=== PATIENT | female | born 1965 | race Caucasian/White ===

== ENCOUNTER 2019-10-23 14:50 | Outpatient (CLI) | payer BC, SELFPAY ==
--- NOTE | ~2019-10-23 | XR_ITS ---
XR lumbar spine 2-3V DATE: 10/23/2019 15:37 INDICATION: Low back pain. Injury from high school. TECHNIQUE: AP, lateral, coned lateral lumbosacral views COMPARISON: None FINDINGS: Minimal levoscoliosis of the lumbar spine. Osteopenia. Probable bilateral L5 pars interarticularis defects with grade 1 anterolisthesis at L5-S1. Moderately severe loss of interspace height at L5-S1. Mild degenerative disease at L1-2. Otherwise no fracture or bone destruction is noted. The included T11-L5 pedicles are intact. The sacroiliac joints are normal. Bilateral fallopian tube implant devices are noted. Status post cholecystectomy. IMPRESSION: Osteopenia Minimal levoscoliosis Probable bilateral L5 pars intra-articular is defects with associated grade 1 anterolisthesis at L5-S 1 Degenerative disc disease at L1-2 and L5-S1 primarily Reviewed, dictated and finalized at location A. IMPRESSION: Osteopenia Minimal levoscoliosis Probable bilateral L5 pars intra-articular is defects with associated grade 1 a nterolisthesis at L5-S1 Degenerative disc disease at L1-2 and L5-S1 primarily
--- NOTE | ~2019-10-23 | XR_ITS ---
XR foot LT min 3V DATE: 10/23/2019 15:35 INDICATION: Left heel pain TECHNIQUE: 4 views COMPARISON: 09/17/2018 left foot FINDINGS: There is prominent plantar calcaneal enthesopathy without erosive change or periostitis. No fracture, dislocation, periosteal reaction or bone destruction. There is osteoarthritic change at the first metatarsophalangeal joint. IMPRESSION: Plantar calcaneal enthesopathy Osteoarthritis at first metatarsophalangeal joint Reviewed, dictated and finalized at location A.
[2019-10-23 15:15] LABS: Hematocrit 36.7 % (37.0-47.0); Hemoglobin 11.4 g/dL (12.0-15.0); Mean Corpuscular HGB Conc 31.1 g/dl (32-36); Mean Corpuscular Hemoglobin 27.9 pg (26-34); Mean Corpuscular Volume 89.7 fl (80-100); Mean Platelet Volume 9.9 fl (7.4-10.4); Platelet Count Result 260 k/mm3 (150-375); Red Blood Count 4.09 M/mm3 (4.2-5.4); Red Cell Distribution Width 14.2 % (11.5-14.5); White Blood Count 7.5 K/mm3 (4.5-10.0)
[2019-10-23 15:17] LABS: Add Urine Microscopic? NO; Appearance Urine Clear (Clear); Bilirubin Urine Negative (Negative); Blood Urine Negative (Negative); Color Urine Yellow (Yellow); Glucose Urine UA Negative (Negative); Ketones Urine Negative (Negative); Leukocyte Esterase Ur Negative LEU/UL (NEGATIVE); Nitrate Urine Negative (Negative); Protein Urine Negative (Negative); Specific Grav Ur 1.017 (1.001-1.035); Urobilinogen Urine Negative mg/dL (<2.0)
[2019-10-23 15:55] LABS: Alanine Aminotransferase 22 U/L (4-35); Albumin Level 4.2 g/dL (3.5-5.1); Alkaline Phosphatase 90 U/L (38-126); Anion Gap 6 mmol/L (8-16); Aspartate Amino Transferase 23 U/L (14-36); Bilirubin,Total 0.3 mg/dL (0.2-1.3); Blood Urea Nitrogen 25 mg/dL (7-17); Calcium 9.2 mg/dL (8.4-10.2); Carbon Dioxide 31 mmol/L (22-30); Chloride 102 mmol/L (98-107); Cholesterol 149 mg/dL (0-200); Estimated Glomerular Filt Rate > 60; Glucose 99 mg/dL (65-105); HDL Direct 41 mg/dL; Potassium 4.3 mmol/L (3.4-5.0); Sodium 139 mmol/L (137-145); Triglycerides 120 mg/dL (<150)
[2019-10-23 16:06] LABS: LDL Cholesterol Direct 80 mg/dL
== END 2019-10-23 14:51 | disposition home or self-care (01) ==
PROVIDERS: PCP Family Medicine; Visit Provider Physician Assistant
DX: E78.5 Hyperlipidemia, unspecified (principal); I10 Essential (primary) hypertension; M85.88 Other specified disorders of bone density and structure, other site; M51.36 Other intervertebral disc degeneration, lumbar region; M51.37 Other intervertebral disc degeneration, lumbosacral region; M77.32 Calcaneal spur, left foot; M19.072 Primary osteoarthritis, left ankle and foot
CPT/HCPCS: 36415; 72100; 73630; 80053; 80061; 81003; 84443; 85027

== ENCOUNTER 2020-03-27 18:36 | Emergency (ER) | payer BC, SELFPAY ==
--- NOTE | ~2020-03-27 | XR_ITS ---
EXAMINATION: XR knee RT 3V DATE: 03/27/2020 19:59 INDICATION: Chronic generalized right knee pain TECHNIQUE: Anteroposterior, oblique and crosstable lateral views of the right knee were obtained COMPARISON: None. FINDINGS: Alignment is normal. No fracture. No significant joint space narrowing however this can be underesti mated on nonweightbearing imaging. No joint effusion/layering lipohemarthrosis. Soft tissues are unre markable. IMPRESSION: 1. Unremarkable nonweightbearing right knee radiographs. Reviewed, dictated and finalized at location A. TERY KEEPER
--- NOTE | ~2020-03-27 | XR_ITS ---
EXAMINATION: XR ankle RT min 3V, XR foot RT min 3V DATE: 03/27/2020 19:58 INDICATION: Chronic generalized right foot and ankle pain TECHNIQUE: 1. Anteroposterior, mortise, additional oblique and lateral view of the right ankle were obtained. 2. Dorsoplantar, two oblique and lateral views of the right foot were obtained. COMPARISON: None. FINDINGS: Alignment of the right foot and ankle is normal. No fracture or osteochondral lesion. Mild osteoarthr itis at the right ankle, first metatarsophalangeal and multiple tarsal metatarsal and interphalangeal joints. No cortical erosions to suggest an inflammatory arthritis. Moderate-sized plantar calcaneal spur. No ankle joint effusion. Diffuse subcutaneous edema about the distal lower leg, ankle and foot. IMPRESSION: 1. Mild polyarticular osteoarthritis at the right foot and ankle. No acute osseous abnormality. Reviewed, dictated and finalized at location A. AND ALTERATION TAILOR IMPRESSION: 1. Mild polyarticular osteoarthritis at the right foot and ankle. No acute osse ous abnormality.
[2020-03-27 18:41] VITALS: BP 162/90; PULSE 97; RESP 16; TEMP 35.9; O2SAT 97
[2020-03-27] MEDS: HYDROcodone/acetaminophen (*CRX) 5-325 MG TABLET 1 TAB PO (20:20)
--- NOTE | 2020-03-27 20:49 | ED.GENADULT ---
HPI - General Adult General Chief complaint: Extremity Injury, Lower Stated complaint: right leg pain Time Seen by Provider: 03/27/20 19:20 History of Present Illness HPI narrative: Patient is a 54-year-old female who presents the emergency department with chief complaint of right knee pain. Patient states that for several weeks to a month she has been having pain in her right knee states that it clicks at times states it is worse with movement and improved whenever she sits in a seated position. Patient states it is worse whenever she lays down and extends her leg states that it feels as though her knee is full. Patient denies any specific trauma states she also has pain in her right ankle and right foot and hears a clicking whenever she walks a time. Patient denies peripheral edema Related Data Home Medications Medication Instructions Recorded Confirmed triamcinolone acetonide 0.025 % 1 applic TOPICAL BID 02/20/19 04/10/19 topical cream Allergies Allergy/AdvReac Type Severity Reaction Status Date / Time codeine Allergy Unknown Itching Verified 03/27/20 18:54 Review of Systems Review of Systems: Narrative: A 10 system review of systems was completed on the patient and is negative except for what is stated in the HPI. Nursing and ancillary documentation was reviewed. [facility] Family History Family History Father Cerebrovascular accident Mother Family history of malignant neoplasm of breast in first degree relative Social History Social History Smoking status: Former smoker Smoking end date: 02/13/08 Alcohol intake: never Substance use: never Substance use type: does not use Gender identity (if verbalized by the patient): Female Comments Past medical history significant for hypertension and high cholesterol Exam Narrative: Exam Narrative: GENERAL: Well-appearing, well-nourished, and in no acute distress. HEAD: Normocephalic, atraumatic. EYES: PERRLA and EOMI. ENT: Nares clear, no rhinorrhea or epistaxis. Mucous membranes moist. NECK: Supple. CHEST: Clear to auscultation. No respiratory distress. HEART: Regular rate and rhythm. No murmur heard. Normal peripheral pulses. ABDOMEN: Soft, nontender, nondistended, normal active bowel sounds. EXTREMITIES: Normal range of motion. No edema. There is tenderness to palpation of the right knee right ankle and right foot. There is no ecchymosis there is no bruising there is no swelling. SKIN: Warm, dry, no rash. NEURO: No focal deficits. Alert and oriented x3. PSYCH: Normal mood and affect. Course Vital Signs Vital signs: Vital Signs Temperature 35.9 C L 03/27/20 18:41 Pulse Rate 97 03/27/20 18:41 Respiratory Rate 16 03/27/20 18:41 Blood Pressure 162/90 H 03/27/20 18:41 Pulse Oximetry 97 03/27/20 18:41 Temperature 35.9 C L 03/27/20 18:41 Pulse Rate 97 03/27/20 18:41 Respiratory Rate 16 03/27/20 18:41 Blood Pressure 162/90 H 03/27/20 18:41 Pulse Oximetry 97 03/27/20 18:41 Medical Decision Making Vital Signs Vital Signs: Vital Signs Temperature 35.9 C L 03/27/20 18:41 Pulse Rate 97 03/27/20 18:41 Respiratory Rate 16 03/27/20 18:41 Blood Pressure 162/90 H 03/27/20 18:41 Pulse Oximetry 97 03/27/20 18:41 Temperature 35.9 C L 03/27/20 18:41 Pulse Rate 97 03/27/20 18:41 Respiratory Rate 16 03/27/20 18:41 Blood Pressure 162/90 H 03/27/20 18:41 Pulse Oximetry 97 03/27/20 18:41 Discharge Plan Discharge Clinical Impression: Acute pain of right knee Arthralgia Qualifiers: Joint pain location: knee Laterality: right Qualified Code(s): M25.561 - Pain in right knee Patient Disposition: Home, Self-Care Condition: Stable Instructions: Antibiotic Form Prescriptions: New methylprednisolone [Medrol (Dar)] 4 mg tablets,dose pack See Rx I
== END 2020-03-27 21:19 | disposition home or self-care (01) ==
PROVIDERS: Emergency Provider Emergency Medicine; PCP Family Medicine
DX: M25.561 Pain in right knee (principal); Z87.891 Personal history of nicotine dependence; M19.071 Primary osteoarthritis, right ankle and foot
CPT/HCPCS: 73562; 73610; 73630; 99283; A9270

== ENCOUNTER 2021-06-15 16:09 | Outpatient (CLI) | payer BC, SELFPAY ==
--- NOTE | ~2021-06-15 | XR_ITS ---
EXAM: XR lumbar spine 2-3V, XR hip BI 2V w AP pelvis HISTORY: G89.29 - Other chronic pain COMPARISON: None available FINDINGS: 5 nonrib-bearing lumbar-type vertebral bodies. Pedicles intact. Grade 1 anterolisthesis of L5 on S1, otherwise normal vertebral body alignment. Vertebral body heights preserved. Multilevel de generative disc disease, vacuum disc at L5-S1. Bilateral L5 pars defects. Mild degenerative change at the SI joints and pubic symphysis. Moderate bilateral superior hip joint space narrowing and osteoph ytosis. Cholecystectomy. Tubal ligations. IMPRESSION: Lumbar degenerative disc disease, severe at L5-S1. Moderate bilateral hip osteoarthritis. Reviewed, dictated and finalized at location K. IMPRESSION: Lumbar degenerative disc disease, severe at L5-S1. Moderate bilateral hip osteo arthritis.
== END 2021-06-15 16:10 | disposition home or self-care (01) ==
LOC: ANHIMG 16:15
PROVIDERS: PCP Family Medicine; Visit Provider Physician Assistant
DX: M51.37 Other intervertebral disc degeneration, lumbosacral region (principal); M16.0 Bilateral primary osteoarthritis of hip
CPT/HCPCS: 72100; 73521

== ENCOUNTER 2021-12-14 12:59 | Outpatient (CLI) | payer BC, SELFPAY ==
--- NOTE | ~2021-12-14 | XR_ITS ---
EXAMINATION: XR chest 2V Exam Date/Time: 12/14/2021 13:10 CDT HISTORY: R05.9 - Cough, unspecified CONGESTION WEAK NO FEVER Comparison: 09/16/2008. RESULT: Lines, tubes, and devices: None. Lungs and pleura: Clear. Cardiomediastinal silhouette: Stable. Other: No acute osseous or upper abdominal finding. IMPRESSION: No acute cardiopulmonary process. Reviewed, dictated and finalized at location K.
== END 2021-12-14 13:00 | disposition home or self-care (01) ==
LOC: ANHIMG 13:05
PROVIDERS: PCP Family Medicine; Visit Provider Physician Assistant
DX: R05.9 Cough, unspecified (principal)
CPT/HCPCS: 71046

== ENCOUNTER 2021-12-15 11:56 | Outpatient (CLI) | payer BC, SELFPAY ==
--- NOTE | ~2021-12-15 | XR_ITS ---
XR_CERV2-3V_CR DATE: 12/15/2021 12:12 INDICATION: Posterior midline cervical neck pain. No injury. TECHNIQUE: AP, open-mouth, lateral, swimmer views COMPARISON: None FINDINGS: C1 and C2 are normally aligned and the odontoid process is intact. No fracture or dislocati on or locked facet or prevertebral soft tissue swelling. There is approximately 2 mm anterolisthesis at C4-5 and 1 mm anterolisthesis at C5-6. Mild loss of interspace height at C5-6. Moderately severe degenerative disc disease at C6-7. Degenerative changes apophyseal joints. IMPRESSION: Cervical spondylosis; no fracture Reviewed, dictated and finalized at Location A. Reviewed, dictated and finalized at location A.
== END 2021-12-15 11:57 | disposition home or self-care (01) ==
PROVIDERS: PCP Family Medicine; Visit Provider Physician Assistant
DX: M47.892 Other spondylosis, cervical region (principal)
CPT/HCPCS: 72040

== ENCOUNTER 2022-02-16 13:30 | Outpatient (RCR) | payer BC, SELFPAY ==
--- NOTE | 2021-12-30 09:17 | PTOPEVAL1 ---
Assessment and note entered by Sara Bowens, PT Evaluation Information Assessment Status Evaluation Diagnosis neck pain, back pain, other chronic pain Onset June 2021 Subjective Information have orders for neck, back and other pain; pt reported back is bothering her the most and wants to start treatment on her back; in June severe pain when lifting something--could not walk and her had to help her out of bed and walk, legs went numb and could not move her legs; recent xrays: severe L 5-S1 DDD and B hip OA; chronic pain in back since teenager; have not had PT on her back Reported Pain Level Pain Score Self Report Additional Pain Score Comments pain range of 0-8/10; back feels like a balloon got a hole in it and squished out, achey, hurts; radicular pain into L leg to foot/ R leg to foot; pain increases standing/walking 10-15 minutes & sitting 15 minutes; sleeping is difficult due to chronic pain in neck, back and insomnia--varies and unable to state objective; decrease pain with position change, in sitting, put a roll behind back, lie flat on floor with legs on couch; use salon pas pain patches; take tylenol, have new script for anti inlammatory- about one week; Assessment PT Clinical Summary Celia has the diagnosis of neck pain, back pain, other chronic pain. She reports the back is the most problem for her, so eval was of the low back. Self assessment Oswestry score of 60% limitation in activity level. She reports back pain limits her walking, standing, sitting and home tasks. Radicular pain into R and L LE intermittent to feet. Xray reports: B hip OA, DDD L 5-S1. With the evaluation, she has poor standing position with increased lumbar lordosis, obesity with larger hips and thighs; decreased strength of trunk and hips, decreased hip ROM and pain with standing trunk motions and supine R and L hip motions. 2 minute walking test distance of 300' with increased pain and SOB. Skilled PT services are indicated for modalities to decrease pain, therapeutic exercises to increase trunk and hip strength with education for posture correction and pain control. Plan of Care Interventions Electrical Stimulation,Hot Pack/Cold Pack,Manual Therapy,Patient/Caregiver Education,Therapeutic Activities,Therapeutic Exercise,Ultrasound PT Services Indicated
--- NOTE | 2022-02-16 14:25 | PTOPDC ---
Assessment and note entered by Sara Bowens, PT Evaluation Information Assessment Status Discharge Diagnosis neck pain, back pain, other chronic pain Onset June 2021 Subjective Information Celia reports: back is still hurting, still the same pain in back; cannot lift or carry anything because it hurts; problems doing the stairs; need an MRI and get it fixed so I will stop hurting; the original PT order states back and neck pain; she reports her neck cracks sometimes, but does not really hurt her anymore. Back is her main trouble. pain range in past week 0-10/10; in back--dull, intense pain; R and L leg squeezes in calf; increase pain with bending forward, standing/ walking 20-30 min; sitting 30- 40 min; decrease pain sit and rest, in standing, lean forward onto the bed; lean onto the grocery cart can walk further; take over the counter meds and pain patches; heat /ice- not sure if help or not; Reported Pain Level Pain Score Self Report back pain Additional Pain Score Comments pain range in past week 0-10/10; in back--dull, intense pain; R and L leg squeezes in calf; increase pain with bending forward, standing/ walking 20-30 min; sitting 30- 40 min; decrease pain sit and rest, in standing, lean forward onto the bed; lean onto the grocery cart can walk further; take over the counter meds and pain patches; heat /ice- not sure if help or not; Assessment PT Clinical Summary Celia has received 6 PT sessions from Dec 30 to today. She voices frustration about continued back pain and leg pain and that she needs an MRI and get her back fixed. Compared to the initial evaluation: pain rating at the low rating is the same at 0/10 and worst has increased from 8 to 10/10; continues to have pain into R and L LE; Oswestry self assessment functional score is 42% limitation in activity level, improved by 18%; reported sitting, standing/walking tolerances have increased; R and L LE strength is about the same; 2 minute walking test distance increased, but continues to have SOB and butch
== END 2022-02-16 14:37 | disposition home or self-care (01) ==
LOC: ANHPT 13:30
PROVIDERS: PCP Family Medicine; Visit Provider Physician Assistant
DX: M54.50 Low back pain, unspecified (principal); M54.2 Cervicalgia; G89.29 Other chronic pain
CPT/HCPCS: 97014; 97110; 97112; 97162; G0283

== ENCOUNTER 2022-04-26 10:40 | Outpatient (CLI) | payer BC, SELFPAY | END 2022-04-26 10:41 | disposition home or self-care (01) | LOC: ANHAUDIO 10:41 | PROVIDERS: PCP Family Medicine; Visit Provider Otolaryngology | DX: H90.41 Sensorineural hearing loss, unilateral, right ear, with unrestricted hearing on the contralateral side (principal) | CPT/HCPCS: 92557; 92567 ==

== ENCOUNTER 2022-08-16 17:06 | Outpatient (CLI) | payer BC, SELFPAY ==
--- NOTE | ~2022-08-16 | XR_ITS ---
XR hand LT 2V DATE: 08/16/2022 17:27 INDICATION: Clicking at first metacarpophalangeal joint. No injury. TECHNIQUE: AP and lateral views COMPARISON: None FINDINGS: Osteopenia is noted. Osteophytic changes are noted at the triscaphe, first carpometacarpal, first metacarpal phalangeal an d multiple interphalangeal joints, most prominent at the distal interphalangeal joint of the second d igit. No fracture, dislocation, periosteal reaction or bone destruction. IMPRESSION: Osteoarthritis Osteopenia Reviewed, dictated and finalized at location A. IMPRESSION: Osteoarthritis Osteopenia
== END 2022-08-16 17:07 | disposition home or self-care (01) ==
PROVIDERS: PCP Family Medicine; Visit Provider Family Medicine
DX: M19.042 Primary osteoarthritis, left hand (principal); M85.842 Other specified disorders of bone density and structure, left hand
CPT/HCPCS: 73120

== ENCOUNTER 2022-09-11 08:43 | Outpatient (CLI) | payer BC, SELFPAY ==
--- NOTE | ~2022-09-11 | MR_ITS ---
MRI of the cervical spine Clinical History: Pain Technique: Axial T2-weighted and gradient images, and sagittal T1-weighted, T2-weighted, and STIR stanford ges were acquired. Findings: There is no fracture in the cervical spine. There is 2 mm anterolisthesis of C4 over C5. Th ere is minimal grade 1 anterolisthesis of C5 over C6. No suspicious bone marrow signal abnormality se en. At C2-C3, there is no significant disc bulge or herniation. No spinal canal stenosis, cord compressio n, or neural foraminal narrowing. At C3-C4, there is no disc bulge or herniation. No spinal canal stenosis, cord compression, or defini te neural foraminal narrowing. At C4-C5, there is no definite disc bulge or herniation. There is left facet arthropathy. Neural fora angelic are probably preserved. At C5-C6, there is mild disc osteophyte complex with minimal flattening the ventral cord. Neural fora angelic are probably preserved bilaterally. At C6-C7, there is mild canal stenosis with mild disc osteophyte complex. Bilateral neural foramina a re probably preserved. Paravertebral soft tissues are unremarkable. Impression: Mild degenerative spondylosis, as above. 2 mm anterolisthesis of C4 over C5. Minimal grade 1 anterolisthesis of C5 over C6. Reviewed, dictated and finalized at [facility]. Impression: Mild degenerative spondylosis, as above. 2 mm anterolisthesis of C4 over C5. Minimal grade 1 anterolisthesis of C5 over C6.
--- NOTE | ~2022-09-11 | MR_ITS ---
MRI of the lumbar spine Clinical History: Back pain Technique: Axial T2-weighted images, and sagittal T1-weighted, T2-weighted, and and T2 fat-sat images were acquired. Findings: There are bilateral L5 pars interarticularis defects, with 3 mm anterolisthesis of L5 over S1. No acute fracture noted. No additional subluxation identified. No suspicious bone marrow signal a bnormality seen. At L1-L2, there is mild degenerative disc narrowing, with minimal disc bulge. There is mild facet derrick nt degenerative change. No central canal stenosis or neural foraminal narrowing. At L2-L3, there is no disc bulge or herniation. No central canal stenosis or neural foraminal narrowi ng. At L3-L4 and L4-L5, there is no disc bulge or herniation. There are mild to moderate facet joint dege nerative changes at these levels, without central canal stenosis or neural foraminal narrowing. At L5-S1, there is diffuse disc bulge with mild facet arthropathy. No central canal stenosis. There i s moderate right neural foraminal narrowing and minimal left neural foraminal narrowing. Paravertebral soft tissues are unremarkable. Impression: Bilateral L5 pars interarticularis defects, with 3 mm anterolisthesis of L5 over S1. Mild degenerative spondylitic changes, as above. Reviewed, dictated and finalized at [facility]. Impression: Bilateral L5 pars interarticularis defects, with 3 mm anterolisthesis of L5 ove r S1. Mild degenerative spondylitic changes, as above.
== END 2022-09-11 08:44 | disposition home or self-care (01) ==
PROVIDERS: PCP Family Medicine; Visit Provider Family Medicine
DX: M47.892 Other spondylosis, cervical region (principal); M47.896 Other spondylosis, lumbar region
CPT/HCPCS: 72141; 72148

== ENCOUNTER 2022-11-14 15:30 | Outpatient (RCR) | payer BC, SELFPAY | END 2022-11-14 23:59 | disposition home or self-care (01) | LOC: ANHAUDIO 15:30 | PROVIDERS: PCP Family Medicine; Visit Provider Family Medicine | DX: Z46.1 Encounter for fitting and adjustment of hearing aid (principal) | CPT/HCPCS: 99199; V5256 ==

== ENCOUNTER 2023-08-02 15:32 | Outpatient (CLI) | payer BC, SELFPAY ==
[2023-08-02 16:41] LABS: Basophils Percent Auto 0.5 % (0.2-1.2); Eosinophils Absolute Auto 0.4 K/mm3 (0-0.3); Eosinophils Percent Auto 5.5 % (0-4.4); Hematocrit 37.8 % (37.0-47.0); Hemoglobin 11.7 g/dL (12.0-15.0); Immature Granulocyte Absolute 0.02 K/mm3 (0.00-0.031); Immature Granulocyte Percent A 0.3 % (0-0.5); Lymphocytes Percent Auto 22.2 % (18.3-44.2); Mean Corpuscular Hemoglobin 27.9 pg (26-34); Mean Corpuscular Volume 90.2 fl (80-100); Mean Platelet Volume 9.9 fl (7.4-10.4); Monocytes Absolute Auto 0.5 K/mm3 (0.1-0.6); Monocytes Percent Auto 6.8 % (2.6-8.5); Neutrophils Percent Auto 64.7 % (45.5-73.1); Platelet Count Result 285 k/mm3 (150-375); Red Blood Count 4.19 M/mm3 (4.2-5.4); Red Cell Distribution Width 14.2 % (11.5-14.5); White Blood Count 7.7 K/mm3 (4.5-10.0)
[2023-08-02 16:53] LABS: Hemoglobin A1C 6.1 % (<5.7)
[2023-08-02 16:59] LABS: Alanine Aminotransferase 35 U/L (6-35); Albumin Level 4.5 g/dL (3.5-5.1); Alkaline Phosphatase 91 U/L (38-126); Anion Gap 8 mmol/L (4-12); Aspartate Amino Transferase 34 U/L (14-36); Bilirubin,Total 0.4 mg/dL (0.2-1.3); Blood Urea Nitrogen 21 mg/dL (7-17); Calcium 9.4 mg/dL (8.4-10.2); Carbon Dioxide 31 mmol/L (22-30); Chloride 102 mmol/L (98-107); Cholesterol 172 mg/dL (0-200); Estimated Glomerular Filt Rate > 60; Glucose 95 mg/dL (65-110); HDL Direct 35 mg/dL; Potassium 4.2 mmol/L (3.4-5.0); Sodium 141 mmol/L (137-145); Triglycerides 111 mg/dL (<150)
[2023-08-02 17:00] LABS: Appearance Urine Clear (Clear); Bilirubin Urine Negative (Negative); Blood Urine Negative (Negative); Color Urine Yellow (Yellow); Glucose Urine UA Negative (Negative); Ketones Urine Negative (Negative); Leukocyte Esterase Ur Negative LEU/UL (Negative); Nitrate Urine Negative (Negative); Protein Urine Negative (Negative); Specific Grav Ur 1.014 (1.001-1.035); Urobilinogen Urine 0.2 mg/dL (<2.0)
[2023-08-02 17:04] LABS: Add Urine Microscopic? NO
[2023-08-02 17:10] LABS: LDL Cholesterol Direct 109 mg/dL
== END 2023-08-02 15:33 | disposition home or self-care (01) ==
PROVIDERS: PCP Family Medicine; Visit Provider Physician Assistant
DX: K58.1 Irritable bowel syndrome with constipation (principal); K21.9 Gastro-esophageal reflux disease without esophagitis; R73.01 Impaired fasting glucose; E78.00 Pure hypercholesterolemia, unspecified; I10 Essential (primary) hypertension; E66.01 Morbid (severe) obesity due to excess calories; J45.20 Mild intermittent asthma, uncomplicated; Z00.00 Encounter for general adult medical examination without abnormal findings
CPT/HCPCS: 36415; 80053; 80061; 81003; 83036; 84443; 85025

== ENCOUNTER 2023-09-10 17:36 | Emergency (ER) | payer BC, SELFPAY ==
--- NOTE | ~2023-09-10 | US_ITS ---
EXAMINATION: US venous doppler [facility] DATE: 09/10/2023 20:55 INDICATION: Left lower limb pain TECHNIQUE: Grayscale ultrasound images without and with compression and Doppler ultrasound images of the left lower extremity veins were obtained. COMPARISON: None. FINDINGS: The visualized portions of left common femoral vein, profunda (deep) femoral vein, femoral vein, popl iteal vein, peroneal veins, posterior tibial veins and greater saphenous vein outflow are patent. 4.6 x 1.3 x 2.1 cm Gifford's cyst at the left popliteal fossa. IMPRESSION: 1. No deep venous thrombosis in the left lower limb. Reviewed, dictated and finalized at location A.
--- NOTE | ~2023-09-10 | XR_ITS ---
EXAMINATION: XR knee LT min 4V DATE: 09/10/2023 20:13 INDICATION: 2 months of left knee pain TECHNIQUE: Anteroposterior, 2 oblique and crosstable lateral views of the left knee were obtained COMPARISON: None. FINDINGS: Alignment is normal. No fracture. There is at least mild joint space narrowing in the medial and pat ellofemoral compartments which could be underestimated on nonweightbearing imaging. Small to moderate size marginal osteophytes in all 3 compartments most prominent at the lateral compartment. No joint effusion/layering lipohemarthrosis. Few small heterotopic ossicles the soft tissues anterior to the m id tibia. IMPRESSION: 1. At least mild tricompartmental osteoarthritis at the left knee which could be underestimated on no nweightbearing imaging. No acute osseous abnormality. Reviewed, dictated and finalized at location A. IMPRESSION: 1. At least mild tricompartmental osteoarthritis at the left knee which could b e underestimated on nonweightbearing imaging. No acute osseous abnormality.
[2023-09-10 17:46] VITALS: BP 186/86; PULSE 89; RESP 20; TEMP 36.6; O2SAT 95
--- NOTE | 2023-09-10 19:56 | ED.LOWEXIN ---
HPI - Extremity Injury (Lower) General Chief Complaint: Extremity Injury, Lower Stated Complaint: LEFT LEG PAIN Time Seen by Provider: 09/10/23 19:40 History of Present Illness HPI Narrative: 58-year-old female with history of morbid obesity, chronic back pain, hypertension, GERD, spinal stenosis presents to the emergency department for lumps to my leg . Patient states she 1st noticed a lump 1 year ago but over the past week has noticed multiple lumps her left lower leg that are tender. She states she had a lump to her foot that appeared 1 year ago, but now they are over her left calf. She is reporting pain to her leg and posterior knee. Describes it as a tight sensation. States it gets worse when she is walking for long periods. Denies injury or trauma. She is ambulatory. She has been taking aspirin without improvement. Pt voiced concern for DVT. No prior history of DVT. Related Data Allergies Allergy/AdvReac Type Severity Reaction Status Date / Time codeine Allergy Unknown Itching Verified 09/10/23 19:18 Review of Systems Review of Systems: All systems reviewed & are unremarkable except as noted in HPI and below PMFSH Family History Family History Father Cerebrovascular accident Alcohol abuse Diabetes mellitus Mother Family history of malignant neoplasm of breast in first degree relative Hypertension Social History Social History Social History: Smoking status: Former smoker Tobacco type: cigarettes Second hand tobacco smoke exposure: No Smoking end date: 02/13/08 Alcohol intake: never Substance use: never Substance use type: does not use Do You Feel Safe in your Home?: Yes Lack of Transportation: No Lack of Food: Never True Current Housing: I Do Not Have Housing Concerned About Future Housing: No Difficulty Paying Gas/Electric Bills: No Difficulty Paying for Meds: No Currently Unemployed: No Education: High School Diploma/GED Difficulty w/ Childcare or Family Care: No Living arrangements: with family Occupation/Education: retired Gender identity (if verbalized by the patient): Female Sexual Orientation (if Verbalized by the Patient): Straight or Heterosexual Exam Narrative: GENERAL: Well-appearing, well-nourished, and in no acute distress. Morbidly obese HEAD: Normocephalic, atraumatic. EYES: PERRLA and EOMI. ENT: Nares clear, no rhinorrhea or epistaxis. Mucous membranes moist. NECK: Supple. CHEST: Clear to auscultation. No respiratory distress. HEART: Regular rate and rhythm. No murmur heard. Normal peripheral pulses. ABDOMEN: Soft, nontender, nondistended, normal active bowel sounds. EXTREMITIES: Tenderness diffusely to the left lower extremity. Areas of fat pads that are tender to palpation. There is an area of ecchymosis to the proximal Tibia that is tender to palpation. DP pulse 2 +. Sensation intact throughout. Extremities pink and dry. No erythema or rash. No edema. SKIN: Warm, dry, no rash. NEURO: No focal deficits. Alert and oriented x3 Course Vital Signs Vital signs: Vital Signs Temperature 97.8 F 09/10/23 17:46 Pulse Rate 89 09/10/23 17:46 Respiratory Rate 20 09/10/23 17:46 Blood Pressure 186/86 H 09/10/23 17:46 Pulse Oximetry 95 09/10/23 17:46 Oxygen Delivery Room Air 09/10/23 17:46 Temperature 97.8 F 09/10/23 17:46 Pulse Rate 89 09/10/23 17:46 Respiratory Rate 20 09/10/23 17:46 Blood Pressure 186/86 H 09/10/23 17:46 Pulse Oximetry 95 09/10/23 17:46 Oxygen Delivery Room Air 09/10/23 17:46 MDM - Extremity Injury (Lower) MDM Narrative Medical decision making narrative: 58-year-old female with history of morbid obesity chronic back pain presents to emergency department for lumps to her left leg. see HPI for further history. Triage vital significant for hyperte
[2023-09-10] MEDS: ACETAMINOPHEN 500 MG TABLET 1000 MG PO (19:58)
[2023-09-10] MEDS: CYCLOBENZAPRINE HCL 10 MG TABLET PO (19:58)
== END 2023-09-10 21:19 | disposition home or self-care (01) ==
PROVIDERS: Emergency Provider Physician Assistant; PCP Family Medicine
DX: M79.605 Pain in left leg (principal); I10 Essential (primary) hypertension; E66.01 Morbid (severe) obesity due to excess calories; Z68.45 Body mass index [BMI] 70 or greater, adult; K21.9 Gastro-esophageal reflux disease without esophagitis; Z87.891 Personal history of nicotine dependence; Z79.899 Other long term (current) drug therapy
CPT/HCPCS: 73564; 93971; 99284; A9270

== ENCOUNTER 2024-04-05 09:28 | Outpatient (CLI) | payer BC, SELFPAY ==
--- OUTSIDE RECORDS SUMMARY | 2024-04-05 09:30 | XMS_ITS | Continuity of Care Document ---
Author Organization [facility] Address [address] [place] [address] Phone Care Team Providers Care Senior Corporate Strategy Manager Name Role Phone Dane Shultz MD Unavailable Unavailable Advance Directives Directive Yes / No Effective Date File Name No Information Encounters Encounter Description Practice Location Reason(s) For Visit Diagnoses Date Provider Providers Copied on Encounter [facility], [address], [place], [place], [id number], tel:[phone] [facility] No Information Lexii Vela. [address] [place], [place], [id number], . tel:[phone] [facility], [address] [place] [address], [id number], tel:[phone] [facility] JOINT PA[employer]SHLDER Anne Marie Martines. [address] [place], [place], [id number], . tel:[phone] Family History Family Member Type Diagnosis Age At Onset No Information Payers Payer name Insurance type Covered alliance party ID Authoriza tion(s) No Information Social [...]
--- OUTSIDE RECORDS SUMMARY | 2024-04-05 09:30 | XMS_ITS | Continuity of Care Document ---
Author Organization [facility] Address [address] [facility] [address] [facility] [address] [place] [address] Phone Care Team Providers Care Aviculturist Name Role Phone Mari OD, Samuel Unavailable Unavailable Advance Directives Directive Yes / No Effective Date File Name No Information Encounters Encounter Description Practice Location Reason(s) For Visit Diagnoses Date Provider Providers Copied on Encounter [facility], [address] [place] [address] [address], [place], [place], [id number], [place] tel:[phone] [facility] No Information June- 3-200 6 Mari ABHIJEET Baker. [facility] [address] [address], [place], [address], [place]. tel:[phone] Referring Provider: [facility] [address] [address] [address], [place], [place], [facility]. tel:[phone] Family History Family Member Type Diagnosis Age [...]
--- OUTSIDE RECORDS SUMMARY | 2024-04-05 09:30 | XMS_ITS | Referral Summary ---
Author Organization [facility] Address [address] [place] [address] Care Team Providers Care Caramel Cutter Hand Name Role Phone Natan Rush MD Primary Care Provider [phone] Source Comments [facility],non-owned Affiliates and Associated Physician Practices is amultiple site organization consisting of ambulatory clinics and hospital sitesin [place], [place], [place] and [place]. This disclosure is being madepursuant to the Care Everywhere program and may not contain all information available regarding this patient. Last updated 17.[facility] Social History Tobacco Use Types Packs/Day Years Used Date Smoking Tobacco: Never Assessed Sex and Gender Information Value Date Recorded Sex Assigned at Not on file Gender Identity Not on file Sexual Orientation Not on file Plan of Treatment Not on file Care Teams Caramel Cutter Hand Relationship Specialty Start Date End Date Natan Rush MD [address] [place] [address] PCP - General 07/26/18
--- OUTSIDE RECORDS SUMMARY | 2024-04-05 09:30 | XMS_ITS | Clinical Summary ---
Author Organization [facility] Address [address] [place] [address] Care Team Providers Care Cooler Service Supervisor Name Role Phone Natan Rush MD Primary Care Provider [phone] Source Comments [facility],non-owned Affiliates and Associated Physician Practices is amultiple site organization consisting of ambulatory clinics and hospital sitesin [place], [place], [place] and [place]. This disclosure is being madepursuant to the Care Everywhere program and may not contain all information available regarding this patient. Last updated 17.[facility] Social History Tobacco Use Types Packs/Day Years Used Date Smoking Tobacco: Never Assessed Sex and Gender Information Value Date Recorded Sex Assigned at Not on file Gender Identity Not on file Sexual Orientation Not on file Plan of Treatment Health Maintenance Due Date Last Done Comments COLOGUARD (AGES 45-75) - COL ON CA SCREENING 1965 COLON MONITORING 1965 COLONOSCOPY - COLON CA SCREENING 1965 CT COLONOGRAPHY - COLON CA SCREENING 1965 Colorectal Cancer Screening 1965 FIT - COLON CA SCREENING 1965 FLEX SIG - COLON CA SCREENING 1965 LIPID TESTING 1965 MAMMOGRAM 1965 PAP SMEAR 1965 HIV SCREENING 1980 HEPATITIS C SCREENING 05/29/1983 DTAP/TDAP/TD VACCINES (1 - Tdap) 1984 HEPATITIS B VACCINE (1 of 3 - 19+ 3-dose series) 1984 PNEUMOCOCCAL VACCINE 50+ (1 of 1 - PCV) 06/03/2015 ZOSTER VACCINE (1 of 2) 06/03/2015 COVID-19 VACCINE ( - 2023-2 5 season) 2023 INFLUENZA VACCINE (#1) 2023 DEPRESSION SCREENING 02/13/2024 HIB VACCINE Aged Out No longer eligi ble based on patient's age to complete this topic HPV VACCINE Aged Out No longer eligi ble based on patient's age to complete this topic MENINGOCOCCAL (Group B) VACCINE Aged Out No longer eligible based on patient's age to complete this topic MENINGOCOCCAL VACCINE Aged Out No rosa isela stacey eligible based on patient's age to complete this topic PNEUMOCOCCAL VACCINE Aged Out No long er eligible based on patient's age to complete this topic Care Teams Cooler Service Supervisor Relationship Specialty Start Date End Date Natan Rush MD [address] [place], [place] [id number] PCP - General 07/26/18
--- OUTSIDE RECORDS SUMMARY | 2024-04-05 09:31 | XMS_ITS | Data Portability ---
Author Organization [place] [facility] Address [address] [place] [address] Assessment Encounter Date Assessment Date Assessment LastModified by Organization Details LastModified Time 02/01/2024 02/01/2024 Ddx: Bacterial Sinusitis, Viral Sinusitis, Viral URI, Influenza, COVID-19 A: Presentation consistent with bacterial sinusitis due to duration and severity of illness. P: Discussed expected course of bacterial sinusitis. Provided counseling/treatme nt recommendations as noted below: Nasal saline rinses Humidification Rest, hydration Smoking cessation as indicated Monitor for fever, SOB, wheezing, worsening breathing difficulty Antibiotic prescribed: augmentin Drug interactions: n/a OTC meds recommended: flonase Counseled on the importance of follow up if symptoms not improving with recommended treatment plan. Patient to be seen for repeat evaluation if symptoms worsen, counseled on red flag symptoms to indicate need for emergent follow up. Patient expressed understanding and agreement with treatment plan as outlined. skifer Not available 02/01/2024 17:56:37 Plan of Treatment Reminders Order Date Submit Date Provider Last Modified By Organization Details Last Modified Time Details Appointments None recorded. Lab None recorded. Referral None recorded. Procedures None recorded. Surgeries None recorded. Imaging None recorded. Medication Orders Augmentin 875 mg-125 mg tablet 2023 024 [facility], [address] [facility], [place], [address], 17:56:14 Patient TargetsNo targets recorded. Patient Instructions Encounter Date Encounter Id Patient Instructions Last Modified By Organization Details Last Modified Time 02/01/2024 [id number] Acute Sinusitis: Care Instructions skifer Not available 02/01/2024 17:56:09 Reason for Referral None Reported. Medical Equipment None Reported. Allergies Allergen ID Allergen Name Allergen Category Reaction Reaction Severity Criticality Documentation Date Start Date Code Code System Note Provider Name and Address Organization Details Recorded Time [id number] codeine medicatio n Not available Not available Not available 02/01/2024 2670 RxNorm Not Available Included Xin - homar Estrada 16:54:33 Medications Name Sig Start Date Stop Date Status Note LastModified by Organization Details LastModified Time Augmentin 875 mg-125 mg tablet Take 1 tablet every 12 hours by oral route for 7 days. 2023 active Not Available Not Available Not Avai lable prednisone 20 mg tablet 11/11 completed Not Available Not Available Not Available meclizine 25 mg tablet active Not Available Not Available Not Available montelukast 10 mg tablet 04/20 completed Not Available Not Available Not Available atorvastati n active Not Available Not Available Not Available omeprazole active Not Available Not Av ailable Not Available albuterol sulfate active Not Available Not Available Not Available lisinopril active Not Available Not Av ailable Not Available UNLISTED MEDICATION [Migrated medicatio n name:] Benzonata te 100 mg capsule:: 100 mg 11/11 completed Not Available Not Available Not Available UNLISTED MEDICATION [Migrated medicatio n name:] Amoxicill in-Clavul anate 875 mg-125 mg tablet::8 75 mg-125 mg 11/11 completed Not Available Not Available Not Available UNLISTED MEDICATION [Migrated medicatio n name:] Ondansetr on 8 mg tablet::8 mg 10/29 completed Not Available Not Available Not Available UNLISTED MEDICATION [Migrated medicatio n name:] Amoxicill in 500 mg capsule:: 500 mg 08/09 completed Not Available Not Available Not Available UNLISTED MEDICATION [Migrated medicatio n name:] Erythromy deena Ophthalmi c 0.5% ointment: :0.5% 08/09 completed Not Available Not Available Not Available Vitals None Recorded Social History None recorded. Functional Status None recorded. Mental Status None recorded. Family History Nothing Reported. Medical History No medical history recorded. Gynecological HistoryNo gynecological history recorded. Obstetrics History GPAL:G 0 P 0 0 0 0 Past Encounters Encounter ID Performer Location Encounter Start Date Encounter Closed Date Diagnosis/Indication Diagnosis SNOMED-CT Code Diagnosis ICD10 Code Diagnosis Note [id number] JOHN Maya [facility] [address] [facility] [place] [address] 02/01/2024 17:50:37 02/01/2024 23:56:31 Acute bacterial sinusitis 30424597 J01.90 Health Concerns Section Related Observation LastModified by Organization Detai ls LastModified Time None Recorded Concern Status LastModified by Organization Details LastModified Time None Recorded Advance Directives Directive None Recorded Payers Encounter Date Sequence Insurance Name Policy Number Policy Dueñas Covered Member ID Dueñas Member ID Guarantor Name 02/01/2024 1 *SELF PAY* Celia Ray [place]ISSING_ [place] LUE Celia Ray Notes Date Note Type Note Provider Name and Address Organization Details Recorded Time 02/01/2024 text/html Patient name , location, and phone number confirmed. Limitations of telemedicine evaluations reviewed, all questions answered, and verbal consent obtained to treat via secure video telemedicine interaction.Clinic betsy attests that the clinician is physically located in the following state at the time of the visit: {{ [place]#}} Patient presents for maxillary and ethmoidal sinus pressure x 1 month. Has PND, rhinorrhea, nasal congestion. Denies fever, chills, abd pain, n/v/d, rash, cp, sob. Taking flonase and claritin. JOHN Maya [address] [facility] [address], [place], [address], [place] [facility] 02/01/2024 17:56:59 OBGyn Episode No OBEpisode recorded.
--- OUTSIDE RECORDS SUMMARY | 2024-04-05 09:31 | XMS_ITS | Patient Health Summary ---
Author Organization [facility] Address [address] [address] Care Team Providers Care Evaporator Operator Name Role Phone Natan Rush MD Primary Care Provider [phone] Note from [facility],non-owned Affiliates and Associated Physician Practices is amultiple site organization consisting of ambulatory clinics and hospital sitesin [place], [place], [place] and [place]. This disclosure is being madepursuant to the Care Everywhere program and may not contain all information available regarding this patient. Last updated 17.[facility] Social History Tobacco Use Types Packs/Day Years Used Date Smoking Tobacco: Never Assessed Sex and Gender Information Value Date Recorded Sex Assigned at Not on file Gender Identity Not on file Sexual Orientation Not on file Procedures * GROSS EXAM PATHOLOGY(Performed 05/20/2005) Results * GROSS EXAM PATHOLOGY (05/20/2005 11:20 AM CDT) Result CASE NUMBER [id number] Comment: ORDERING PHYSICIAN REA ANGUIANO SPECIMEN TYPE Stomach-Clotest DATE OF PROCEDURE 05/20/2005 SPECIMEN LABELED Clotest GROSS DESCRIPTION GROSS DESCRIPTION A Clotest card is received from patient Celia Barrientos. MICROSCOPIC DESCRIPTION The Clotest is negative for Helicobacter organisms. DIAGNOSIS Stomach, Clotest negative for Helicobacter organisms Dictated by Gabriel Reed M.D. Sandblasting Supervisor SKYE ARMENDARIZ Released By GABRIEL REED MISCELLANEOUS SAMPLES / Unknown 05/20/2005 11:20 AM CDT 05/22/2005 9:56 AM CDT Historical Provider LAB - PATHOLOGY/C YTOLOGY ORDERABLES Care Teams Evaporator Operator Relationship Specialty Start Date End Date Natan Rush MD [address] [place] [address] PCP - General 07/26/18
[2024-04-05 09:41] LABS: Basophils Absolute Auto 0.1 K/mm3 (0.0-0.1); Basophils Percent Auto 0.7 % (0.2-1.2); Eosinophils Absolute Auto 0.2 K/mm3 (0-0.3); Hematocrit 38.2 % (37.0-47.0); Hemoglobin 11.4 g/dL (12.0-15.0); Immature Granulocyte Absolute 0.03 K/mm3 (0.00-0.031); Immature Granulocyte Percent A 0.4 % (0-0.5); Lymphocytes Absolute Auto 1.36 K/mm3 (0.9-3.2); Lymphocytes Percent Auto 18.7 % (18.3-44.2); Mean Corpuscular HGB Conc 29.8 g/dl (32-36); Mean Corpuscular Volume 90.3 fl (80-100); Monocytes Absolute Auto 0.4 K/mm3 (0.1-0.6); Monocytes Percent Auto 5.8 % (2.6-8.5); Neutrophils Absolute Auto 5.2 K/mm3 (1.3-6.7); Neutrophils Percent Auto 71.4 % (45.5-73.1); Platelet Count Result 313 k/mm3 (150-375); Red Blood Count 4.23 M/mm3 (4.2-5.4); Red Cell Distribution Width 13.5 % (11.5-14.5); White Blood Count 7.3 K/mm3 (4.5-10.0)
[2024-04-05 09:54] LABS: Alanine Aminotransferase 31 U/L (6-35); Alkaline Phosphatase 89 U/L (38-126); Anion Gap 6 mmol/L (4-12); Aspartate Amino Transferase 24 U/L (14-36); Bilirubin,Total 0.3 mg/dL (0.2-1.3); Blood Urea Nitrogen 31 mg/dL (7-17); Calcium 9.3 mg/dL (8.4-10.2); Carbon Dioxide 35 mmol/L (22-30); Chloride 101 mmol/L (98-107); Estimated Glomerular Filt Rate > 60; Glucose 117 mg/dL (65-110); Potassium 4.6 mmol/L (3.4-5.0); Sodium 142 mmol/L (137-145)
[2024-04-05 09:56] LABS: Hemoglobin A1C 6.6 % (<5.7)
== END 2024-04-05 09:29 | disposition home or self-care (01) ==
LOC: ANHLAB 09:29
PROVIDERS: PCP Family Medicine; Visit Provider Physician Assistant
DX: R73.01 Impaired fasting glucose (principal); D64.9 Anemia, unspecified; I10 Essential (primary) hypertension; Z68.44 Body mass index [BMI] 60.0-69.9, adult
CPT/HCPCS: 36415; 80053; 83036; 85025

== ENCOUNTER 2024-04-20 14:55 | Emergency (ER) | payer BC, SELFPAY ==
[2024-04-20] VITALS (7 sets, daily range): BP systolic 124–188; BP diastolic 62–87; PULSE 73–95; RESP 14–28; TEMP 36.4–37; O2SAT 92–98
--- NOTE | ~2024-04-20 | XR_ITS ---
EXAMINATION: XR chest 2V Exam Date/Time: 04/20/2024 17:15 CDT HISTORY: pna, asthma Comparison: 02/13/2021. RESULT: Lines, tubes, and devices: None. Lungs and pleura: Low volumes with crowding. Detail obscured by body habitus. Calcified right lung g ranulomas. Lungs otherwise clear Cardiomediastinal silhouette: Stable. Other: No acute osseous or upper abdominal finding. IMPRESSION: No acute cardiopulmonary process. Reviewed, dictated and finalized at location K.
--- OUTSIDE RECORDS SUMMARY | 2024-04-20 14:57 | XMS_ITS | Continuity of Care Document ---
Author Organization [email or web address] [facility] Address [address] [place] [address] Phone Care Team Providers Care Cisco Engineer Name Role Phone Dane Shultz MD Unavailable Unavailable Advance Directives Directive Yes / No Effective Date File Name No Information Encounters Encounter Description Practice Location Reason(s) For Visit Diagnoses Date Provider Providers Copied on Encounter [facility], [address], [place], [place], [id number], tel:[phone] [facility] No Information Lexii Vela. [address] [place], [place], [id number], . tel:[phone] [facility], [address] [place] [address], [id number], tel:[phone] [facility] JOINT PAIN-SHLDER Anne Marie Martines. [address] [place], [place], [id number], . tel:[phone] Family History Family Member Type Diagnosis Age At Onset No Information Payers Payer name Insurance type Covered libertarian ID Authoriza tion(s) No Information Social History [...]
--- OUTSIDE RECORDS SUMMARY | 2024-04-20 14:57 | XMS_ITS | Continuity of Care Document ---
Author Organization [facility] Address [address] [facility] [address] [facility] [address] [place] [address] Phone Care Team Providers Care Jewel Hole Driller Name Role Phone Mari OD, Samuel Unavailable Unavailable Advance Directives Directive Yes / No Effective Date File Name No Information Encounters Encounter Description Practice Location Reason(s) For Visit Diagnoses Date Provider Providers Copied on Encounter [facility], [address] [place] [address] [address], [place], [place], [id number], [place] tel:[phone] [facility] No Information June- 3-200 6 Mari ABHIJEET Baker. [facility] [address] [address], [place], [address], [place]. tel:[phone] Referring Provider: [facility] [address] [address] [address], [place], [place], [facility]. tel:[phone] Family History Family Member Type Diagnosis Age [...]
--- OUTSIDE RECORDS SUMMARY | 2024-04-20 14:57 | XMS_ITS | Clinical Summary ---
Author Organization [facility] Address [address] [facility] [place] [address] Care Team Providers Care Herb Digger Name Role Phone Natan Rush MD Primary Care Provider Source Comments [facility] [employer],non-owned Affiliates and Associated Physician Practices is amultiple site organization consisting of ambulatory clinics and hospital sitesin [place], [place], [place] and [place]. This disclosure is being madepursuant to the Care Everywhere program and may not contain all information available regarding this patient. Last updated 17.[facility] [employer] Social History Tobacco Use Types Packs/Day Years [...] age to complete this topic Care Teams Herb Digger Relationship Specialty Start Date End Date Natan Rush MD [address] [place], [place] [id number] PCP - General 07/26/18
--- OUTSIDE RECORDS SUMMARY | 2024-04-20 14:57 | XMS_ITS | Referral Summary ---
Author Organization [facility] Address [address] [place] [address] Care Team Providers Care Investment Counselor Name Role Phone Natan Rush MD Primary Care Provider [phone] Source Comments [facility],non-owned Affiliates and Associated Physician Practices is amultiple site organization consisting of ambulatory clinics and hospital sitesin [place], [place], [place] and [place]. This disclosure is being madepursuant to the Care Everywhere program and may not contain all information available regarding this patient. Last updated 17.[facility] Social History Tobacco Use Types Packs/Day Years Used Date Smoking Tobacco: Never Assessed Sex and Gender Information Value Date Recorded Sex Assigned at Not on file Gender Identity Not on file Sexual Orientation Not on file Plan of Treatment Not on file Care Teams Investment Counselor Relationship Specialty Start Date End Date Natan Rush MD [address] [place] [address] PCP - General 07/26/18
--- OUTSIDE RECORDS SUMMARY | 2024-04-20 14:57 | XMS_ITS | Patient Health Summary ---
Author Organization [facility] Address [address] [place] [address] Care Team Providers Care Referral Management Liaison Name Role Phone Natan Rush MD Primary Care Provider [phone] Note from [facility],non-owned Affiliates and Associated Physician Practices is amultiple site organization consisting of ambulatory clinics and hospital sitesin [place], [place], [place] and [place]. This disclosure is being madepursuant to the Care Everywhere program and may not contain all information available regarding this patient. Last updated 17.[facility] [employer] Social History Tobacco Use Types Packs/Day Years [...] Helicobacter organisms Dictated by Gabriel Reed M.D. Industrial Gas Production Operator SKYE ARMENDARIZ Released By GABRIEL REED MISCELLANEOUS SAMPLES / Unknown 05/20/2005 11:20 AM CDT 05/22/2005 9:56 AM CDT Historical Provider LAB - PATHOLOGY/C YTOLOGY ORDERABLES Care Teams Referral Management Liaison Relationship Specialty Start Date End Date Natan Rush MD [address] [place] [address] PCP - General 07/26/18
--- OUTSIDE RECORDS SUMMARY | 2024-04-20 14:58 | XMS_ITS | Data Portability ---
Author Organization [place] - [facility] , [facility] Address [address] [place] [address] Assessment Encounter Date Assessment Date Assessment LastModified [...] None recorded. Imaging None recorded. Medication Orders benzonatate 200 mg capsule 2024 025 [facility], [address] [place] [address], [address], 12:45:48 prednisone 20 mg tablet 2024 025 [facility], [address] [place], [address], 12:45:47 fluticasone propionate 50 mcg/actuati on nasal spray,suspe nsion 2024 025 [facility], [address] [place], [address], 5 12:45:49 Augmentin 875 mg-125 mg tablet 2023 024 [facility], [address] [place], [address], 4 17:56:14 Patient TargetsNo targets recorded. Patient Instructions Encounter Date Encounter Id Patient Instructions Last Modified By Organization Details Last Modified Time 02/01/2024 [id number] Acute Sinusitis: Care Instructions skifer Not available 02/01/2024 17:56:09 04/18/2024 [id number] upper respirator y infection (cold): care instructions edahir Not available 04/18/2024 12:45:41 Summary of Today 's Visit: Today, we discussed your recent symptoms, which include sinus pressure, headaches, fever, wheezing, and asthma exacerbation. You tested negative for COVID-19 earlier today. You've been feeling progressively worse over the past two weeks, with significant symptoms worsening over the last few days, particularly your headaches and wheezing. Treatment Plan: We are going to manage your symptoms with a few medications. I will prescribe a short course of steroids to help reduce inflammation and improve your asthma and sinus symptoms. You will take one steroid daily for five days. Additionally, you can use a cough suppressant three times a day as needed. Managing Sinus and Asthma Symptoms: Continue using your rescue inhaler, albuterol, using two puffs every four hours, especially as you experience more wheezing and chest tightness. I also recommend using Flonase twice daily for five days to help alleviate sinus congestion. Along with this, continue taking Tylenol or ibuprofen for fever and pain relief, and ensure you're staying well-hydrated and getting plenty of rest. Follow-Up Actions: The prescribed medications will be sent to your pharmacy at [facility]. Please monitor your symptoms closely. If your symptoms, especially the sinus pressure and headaches, do not improve after five days, or if your asthma symptoms worsen, follow up with your primary care doctor or call us. If you have any urgent concerns, don't hesitate to contact us. edahir Not available 04/18/2024 12:49:33 Reason for Referral None Reported. Medical Equipment None Reported. Allergies Allergen ID Allergen Name Allergen Category Reaction Reaction Severity Criticality Documentation Date Start Date Code Code System Note Provider Name and Address Organization Details Recorded Time 710697 codeine medicatio n Not available Not available Not available 02/01/2024 2670 RxNorm Not Available [facility] 16:54:33 Medications Name Sig Start Date Stop Date Status Note LastModified by Organization Details LastModified Time Augmentin 875 mg-125 mg tablet Take 1 tablet every 12 hours by oral route for 7 days. 2023 active Not Available Not Available Not Avai lable benzonata te 200 mg capsule Take 1 capsule 3 times a day by oral route as needed, for cough. 2024 active NOT RECOMMEN DED IN </= 10 years Not Available Not Available Not Available prednison e 20 mg tablet Take 2 tablets every day by oral route with meal(s) for 5 days. 2024 active Not Available Not Available Not Avai lable meclizine 25 mg tablet active Not Available Not Available Not Available monteluka st 10 mg tablet 04/20 completed Not Available Not Available Not Available fluticaso ne propionat e 50 mcg/actua tion nasal spray,melita pension Instill 1 spray in each nostril twice daily 2024 active Not Available Not Available Not Avai lable atorvasta tin active Not Available Not Available Not Available omeprazol e active Not Available Not Available Not Available albuterol sulfate active Not Available Not Available Not Available lisinopri l active Not Available Not Available Not Available UNLISTED MEDICATIO N [Migrate d medicati on name:] Benzonat ate 100 mg capsule: :100 mg 11/11 completed Not Available Not Available Not Available UNLISTED MEDICATIO N [Migrate d medicati on name:] Amoxicil kylee-Clav ulanate 875 mg-125 mg tablet:: 875 mg-125 mg 11/11 completed Not Available Not Available Not Available UNLISTED MEDICATIO N [Migrate d medicati on name:] Melody hernández 8 mg tablet:: 8 mg 10/29 completed Not Available Not Available Not Available UNLISTED MEDICATIO N [Migrate d medicati on name:] Amoxicil kylee 500 mg capsule: :500 mg 08/09 completed Not Available Not Available Not Available UNLISTED MEDICATIO N [Migrate d medicati on name:] Erythrom ycin Ophthalm ic 0.5% ointment ::0.5% 08/09 completed Not Available Not Available Not [...] SNOMED-CT Code Diagnosis ICD10 Code Diagnosis Note [id number] Hue Cee [address] [place] [address] 02/01/2024 17:50:37 02/01/2024 23:56:31 Acute bacterial sinusitis 48158120 J01.90 [id number] Olivia Rollins [address] [place] [address] 04/18/2024 12:36:08 04/18/2024 12:51:30 Exacerbation of intermittent asthma [id number] J45.21 Asthma Exacerbati on - Indicated by the patient's wheezing, chest tightness, and increased use of rescue inhaler, typically worsening with seasonal triggers. - Prescribed a five-day course of oral steroids for inflammati on.- Advised using albuterol inhaler, two puffs every four hours as needed, especially during increased wheezing and chest tightness. - Recommende d continuing with Flonase twice a day for five days.- Encouraged ongoing use of Albuterol and to contact primary care if symptoms do not improve. Acute uppe r respiratory infection [id number] J06.9 Ddx: Viral URI, Acute Bronchitis , Influenza, ABRS, COVID-19 URI- Supported by the patient's symptoms of sinus pressure, headache, and fever, despite negative COVID test and consistent with viral cold symptoms. - Prescribed Flonase to be taken twice a day for five days.- Continue taking Tylenol and ibuprofen for pain.- Advise increased fluid intake and rest.- Suggest following up with primary care if symptoms persist after five days for further evaluation .-Antibiot ic stewardshi p education Counseled on the importance of follow up if symptoms not improving with recommende d treatment plan. Patient to be seen for repeat evaluation if symptoms worsen, counseled on red flag symptoms to indicate need for emergent follow up. Patient expressed understand ing and agreement with treatment plan as outlined. Cough [id number] R05.9 Health Concerns Section Related Observation LastModified by Organization Detai ls LastModified Time None Recorded Concern Status LastModified by Organization Details LastModified Time None Recorded Advance Directives Directive None Recorded Payers Encounter Date Sequence Insurance Name Policy Number Policy Dueñas Covered Member ID Dueñas Member ID Guarantor Name 02/01/2024 1 *SELF PAY* Celia Ray [place]_ [place] [employer] Celia Ray 04/18/2024 1 *SELF PAY* Celia Ray [place]_ [place] [employer] Celia Ray Notes Date Note Type Note Provider Name and Address Organization Details Recorded Time 02/01/2024 text/html Patient name , location, and phone number confirmed. Limitations of telemedicine evaluations reviewed, all questions answered, and verbal consent obtained to treat via secure video telemedicine interaction.Clinici an attests that the clinician is physically located in the following state at the time of the visit: {{ [place]#}} Patient presents for maxillary and ethmoidal sinus pressure x 1 month. Has PND, rhinorrhea, nasal congestion. Denies fever, chills, abd pain, n/v/d, rash, cp, sob. Taking flonase and claritin. JOHN Maya [address] [place] [address], [place], [address], [facility] 02/01/2024 17:56:59 04/18/2024 text/html Call connected, patient greeted. Patient name, , telephone number, and location verified verbally with the patient. Telemedicine limitations reviewed, answered all questions the patient had about the telehealth interaction, and verbal consent obtained to treat. Clinician attests they are physically located in the following state at the time of visit: [place] The patient also consents to the use of AI scribe technology CC: Sinus pressure and headache HPI: The patient presents with sinus pressure and a persistent headache, both of which have been worsening over the last week. The patient reports a low-grade fever of 99.4 F, a reduction from an earlier temperature of 101.4 F measured today. Sinus congestion has increased, leading to a headache that has persisted for the entire week. Attempted symptom control with [id number] medications such as Tylenol, Sudafed for sinus pressure, Sudafed for congestion, Louise-[place] Raymer Plus (day and night), and Excedrin has been ineffective. Additionally, the patient has increased usage of their rescue inhaler due to asthma complications, characterized by wheezing and chest tightness. The onset of wheezing and chest tightness became pronounced yesterday, prompting increased usage of their rescue inhaler. The patient reports dizziness and suspect blocked ears are aggravating this dizziness. Sinus pressure persists, causing pain and discomfort behind the eyes. The patient reassures that their asthma flare-ups are occasional and typically occur with seasonal changes. The patient denies any recent confirmed viral infections; a COVID-19 test performed today returned negative. The patient has a known history of sinus infections that often mimic cold-like symptoms. The patient's usual health care provider is aware of their respiratory history. JOIE CowanP 1 [facility] [address], [place], [address], [facility] 04/18/2024 12:50:00 OBGyn Episode No OBEpisode recorded.
--- NOTE | 2024-04-20 15:19 | ECG_ITS ---
Test Date: 2024-04-20 15:33:46 Measurements Intervals Louisa Rate: 81 P: 57 WI: 147 QRS: 12 QRSD: 98 T: 35 QT: 362 QTc: 422 Interpretive Statements SINUS RHYTHM LOW QRS VOLTAGE IN PRECORDIAL LEADS [QRS DEFLECTION < 1.0 mV IN CHEST LEADS] No previous ECG available for comparison Electronically Signed On 04-21-2024 11:15:32 CDT by Kendrick Mckinley M.D.
--- NOTE | 2024-04-20 15:20 | ED_ITS ---
HPI - SOB/Dyspnea General Chief Complaint: Shortness of Breath/Dyspnea Stated Complaint: Shortness of breath Time Seen by Provider: 04/20/24 15:10 History of Present Illness HPI Narrative: 58-year-old female with a past medical history including hypertension, asthma, hyperlipidemia. Patient presents to the emergency room today with complaints of difficulty breathing and shortness a breath it feels like severe asthma. Patient states that her symptoms have been going on for last 2 days. She talked to a doctor over in Internet service that provided her benzonatate, prednisone 20 mg, Flonase for upper respiratory infection symptoms. Patient states her symptoms feel very similar to asthma but this is worse than it has ever been before. She has been in the ICU previously on a ventilator for severe asthma complicated by pneumonia. Patient denies any chest pain, nausea, vomiting, abdominal pain, back pain, fever or chills. She endorses upper respiratory infection symptoms in addition to feeling profoundly wheezy. She tried her albuterol inhaler last night which did relieve some of her difficulty in breathing but returned this morning. Is on day 2 of her 20 mg prednisone. Related Data Allergies Allergy/AdvReac Type Severity Reaction Status Date / Time codeine Allergy Unknown Itching Verified 04/20/24 14:56 Review of Systems 2 Review of Systems: As reviewed above in HPI [facility] Family History Family History Father Cerebrovascular accident Alcohol abuse Diabetes mellitus Mother Family history of malignant neoplasm of breast in first degree relative Hypertension Social History Social History Social History: Smoking status: Former smoker Tobacco type: cigarettes Second hand tobacco smoke exposure: No Smoking end date: 02/13/08 Alcohol intake: never Substance use: never Substance use type: does not use Do You Feel Safe in your Home?: Yes Lack of Transportation: No Lack of Food: Never True Current Housing: I Do Not Have Housing Concerned About Future Housing: No Difficulty Paying Gas/Electric Bills: No Difficulty Paying for Meds: No Currently Unemployed: No Education: High School Diploma/GED Difficulty w/ Childcare or Family Care: No Living arrangements: with family Occupation/Education: retired Gender identity (if verbalized by the patient): Female Sexual Orientation (if Verbalized by the Patient): Straight or Heterosexual Exam 2 Narrative: GENERAL: Morbidly obese, conversationally dyspneic, awake and answering questions HEAD: [Normocephalic, atraumatic.] EYES: [PERRLA and EOMI.] ENT: Nares clear, no rhinorrhea or epistaxis. Mucous membranes moist. NECK: Supple. CHEST: Profound wheezing to auscultation bilaterally with a prolonged expiratory phase, tachypnea noted, no belly breathing or retractions HEART: [Regular rate and rhythm]. No murmur heard. [Normal peripheral pulses.] ABDOMEN: [Soft, nondistended], [nontender], [No rigidity or guarding] EXTREMITIES: Normal range of motion. [No edema.] SKIN: Warm, dry, no rash. NEURO: [No focal deficits]. Alert and oriented [x3.] PSYCH: [Normal mood and affect.] Course Vital Signs Vital signs: Vital Signs Temperature 37.0 C 04/20/24 15:00 Pulse Rate 95 04/20/24 15:00 Respiratory Rate 22 H 04/20/24 15:00 Blood Pressure 188/87 H 04/20/24 15:00 Pulse Oximetry 95 04/20/24 15:00 Temperature 37.0 C 04/20/24 15:00 Pulse Rate 88 04/20/24 17:53 Respiratory Rate 20 04/20/24 17:53 Blood Pressure 159/68 H 04/20/24 17:53 Pulse Oximetry 92 04/20/24 17:53 Oxygen Delivery Nasal Cannula 04/20/24 16:41 Oxygen Flow Rate 2 04/20/24 16:41 Fraction of Inspired Oxygen 28 04/20/24 15:31 MDM - SOB/Dyspnea MDM Narrative Medical decision making narrative: 58-year-old female with history of asthma, hypertension, hyperlipidemia. She presents with upper respiratory infection symptoms as well as profound wheezing and feeling like she is having a severe asthma exacerbation. She is tachypneic, hypertensive, diffusely wheezing with a prolonged expiratory phase. Saturating 95% on room air with good air entry. Conversationally dyspneic. She denies any chest pain, nausea, vomiting, fever chills. Suspicion presently is for severe asthma exacerbation versus pneumonia versus upper respiratory infection triggering bronchospastic process. Low suspicion other intra thoracic process such as fluid overload or congestive heart failure. Patient is morbidly obese. Workup was ordered this time and respiratory therapy called to bedside for initiation of continuous albuterol Atrovent. She is given Solu-Medrol, magnesium, laboratory studies ordered including CBC, CMP, BNP, chest x-ray, EKG. Patient was placed on cardiac monitoring telemetry and frequent re-evaluated after treatments. Patient was re-evaluated frequently had significant improvement in her breathing. She was no longer wheezing and moving good air. No longer tachypneic. Saturating 92-95% on room air. Workup shows no leukocytosis or anemia significant worsened baseline. Normal platelet count. Electrolytes unremarkable, normal renal and hepatic function panel. Slightly hyperglycemic she but not severe. BNP mildly elevated but not significant. Patient did test positive for influenza. Chest x-ray shows no acute cardiopulmonary process. EKG shows normal sinus rhythm, no signs of ectopy, no derangements, regular rate rhythm an axis. Given patient's significant symptomatic improvement after treatment of her asthma in her reassuring vitals and exam I believe she can be safely discharged home at this time with regular PCP follow-up and strict return precautions as well as treatment initiation including Tamiflu for her influenza. We discussed the risks and benefits of starting this medication and she would like to proceed given her risk factors including severe asthma. Prescriptions will be sent for prednisone, Tamiflu, nebulization treatments and she was provided discharge instructions and refill for albuterol. Differential Diagnosis Differential diagnosis: Likely acute exacerbation of chronic obstructive airways disease, congestive heart failure, community acquired pneumonia, asthma with exacerbation and other Medical Records Attestation: I reviewed the patient's medical records. Lab Data Attestation: I reviewed the patient's lab results. 04/20/24 15:49 04/20/24 15:49 Labs: Lab Results 04/20/24 Range/Units 15:49 WBC 4.6 (4.5-10.0) K/mm3 RBC 4.13 L (4.2-5.4) M/mm3 Hgb 11.4 L (12.0-15.0) g/dL Hct 36.9 L (37.0-47.0) % MCV 89.3 (80-100) fl MCH 27.6 (26-34) pg MCHC 30.9 L (32-36) g/dl RDW 14.2 (11.5-14.5) % Plt Count 220 (150-375) k/mm3 MPV 9.6 (7.4-10.4) fl Immature Gran % (Auto) 0.7 H (0-0.5) % Neut % (Auto) 77.6 H (45.5-73.1) % Lymph % (Auto) 16.0 L (18.3-44.2) % George % (Auto) 5.5 (2.6-8.5) % Eos % (Auto) 0.0 (0-4.4) % Baso % (Auto) 0.2 (0.2-1.2) % Lymph # (Auto) 0.73 L (0.9-3.2) K/mm3 George # (Auto) 0.3 (0.1-0.6) K/mm3 Eos # (Auto) 0.0 (0-0.3) K/mm3 Baso # (Auto) 0.0 (0.0-0.1) K/mm3 Abs Immat Gran (auto) 0.03 (0.00-0.031) K/mm3 Absolute Neuts (auto) 3.6 (1.3-6.7) K/mm3 Absolute Nucleated RBC 0.000 (0.0-0.012) K/mm3 Nucleated RBC % 0.0 (0.0-0.2) % Sodium 136 L (137-145) mmol/L Potassium 4.4 (3.4-5.0) mmol/L Chloride 101 (98-107) mmol/L Carbon Dioxide 25 (22-30) mmol/L Anion Gap 10 (4-12) mmol/L BUN 29 H (7-17) mg/dL Creatinine 0.80 (0.7-1.0) mg/dL Estim Creat Clear Calc Not Reportable Estimated GFR > 60 (59 - ) Glucose 234 H (65-110) mg/dL Calcium 8.9 (8.4-10.2) mg/dL Total Bilirubin 0.1 L (0.2-1.3) mg/dL AST 34 (14-36) U/L ALT 52 H (6-35) U/L Alkaline Phosphatase 88 (38-126) U/L NT-Pro-B Natriuret Pep 280 H (19.9-100) pg/mL Total Protein 8.0 (6.3-8.2) g/dL Albumin 4.0 (3.5-5.1) g/dL Influenza A (RT-PCR) Positive A (Negative) Influenza B (RT-PCR) Negative (Negative) RSV (RT-PCR) Negative (Negative) SARS-CoV-2 RNA (RT-PCR) Negative (Negative) Imaging Data Attestation: I personally reviewed and interpreted this imaging study as follows: My impression: Impressions Chest X-Ray 04/20/24 17:25 IMPRESSION: No acute cardiopulmonary process. Critical Care Time Critical Care Time Critical Care Time: Yes Total Critical Care Time: 35 Discharge Plan Discharge Clinical Impression: Asthma with exacerbation, Influenza A (H1N1) Patient Disposition: Home, Self-Care Condition: Stable Instructions: Antibiotic Form, Asthma (ED), Influenza (ED) Additional Instructions: We will send you home with treatments for your influenza and asthma exacerbation. Take the steroids once daily for next 5 days in addition to the Tamiflu twice daily for the next 5 days. Continue taking her benzonatate and Flonase for any congestion. Return with any new or worsening concerns at any time. Follow-up with regular doctor. Patient Language: Barbadian Prescriptions: New prednisone 50 mg tablet 50 mg PO DAILY 5 Days Qty: 5 0RF albuterol sulfate 90 mcg/actuation HFA aerosol inhaler 2 puff inhalation QID PRN (Reason: shortness of breath or wheezing) Qty: 8.5 0RF oseltamivir [Tamiflu] 75 mg capsule 75 mg PO Q12H 5 Days Qty: 10 0RF (DME) nebulizers [Compact Compressor Nebulizer] Misc See Rx Instructions .Route Qty: 1 0RF Rx Instructions: As directed ipratropium bromide 0.02 % solution 2.5 ml inhalation Q6H PRN (Reason: shortness of breath or wheezing) Qty: 62.5 0RF albuterol sulfate 2.5 mg/0.5 mL solution for nebulization 5 mg inhalation Q6H PRN (Reason: shortness of breath or wheezing) Qty: 30 0RF No Action omeprazole 40 mg capsule,delayed release(DR/EC) See Rx Instructions .ROUTE .COMPLEX Qty: 90 2RF Dose Instruction: TAKE 1 CAPSULE DAILY BEFORE A MEAL Rx Instructions: TAKE 1 CAPSULE DAILY BEFORE A MEAL acetaminophen 500 mg capsule 1,000 mg PO Q6H PRN (Reason: pain) Qty: 30 0RF albuterol sulfate [Ventolin HFA] 90 mcg/actuation HFA aerosol inhaler See Rx Instructions .ROUTE .COMPLEX Qty: 18 5RF Dose Instruction: USE 2 INHALATIONS EVERY 4 TO 6 HOURS NEEDED Rx Instructions: USE 2 INHALATIONS EVERY 4 TO 6 HOURS NEEDED triamcinolone acetonide 0.025 % cream 1 applic TOPICAL BID PRN (Reason: rash) Qty: 80 1RF Rx Instructions: to affected area(s) lisinopril 30 mg tablet See Rx Instructions .ROUTE .COMPLEX Qty: 30 1RF Dose Instruction: TAKE 1 TABLET DAILY Rx Instructions: TAKE 1 TABLET DAILY Follow-up/Referrals: Natan Rush MD [Primary Care Provider] - Time of Disposition: 18:26
[2024-04-20] MEDS: IPRATROPIUM BR 0.02% INH SOLN 0.5 MG/2.5 ML VIAL 1 MG INHALATION (15:31)
[2024-04-20] MEDS: ALBUTEROL SULFATE NEB 2.5 MG/3 ML INH 10 MG INHALATION (15:31)
--- OUTSIDE RECORDS SUMMARY | 2024-04-20 15:33 | XMS_ITS | Continuity of Care Document ---
Author Organization [email or web address] Address [address] [place] [address] Phone Care Team Providers Care Journal Box Inspector Name Role Phone Dane Shultz MD Unavailable Unavailable Advance Directives Directive Yes / No Effective Date File Name No Information Encounters Encounter Description Practice Location Reason(s) For Visit Diagnoses Date Provider Providers Copied on Encounter [facility], [address], [place], [place], [id number], tel:[phone] [facility] No Information Lexii Vela. [address] [place], [place], [id number], . tel:[phone] [facility], [address] [place] [address], [id number], tel:[phone] [facility] Anne Marie Martines. [address] [place], [place], [id number], . tel:[phone] Family History Family Member Type Diagnosis Age [...]
--- OUTSIDE RECORDS SUMMARY | 2024-04-20 15:33 | XMS_ITS | Referral Summary ---
Author Organization [facility] Address [address] [place] [address] Care Team Providers Care Setup Operator Name Role Phone Natan Rush MD Primary Care Provider [phone] Source Comments [facility],non-owned Affiliates and Associated Physician Practices is amultiple site organization consisting of ambulatory clinics and hospital sitesin [place], [place], [place] and [place]. This disclosure is being madepursuant to the Care Everywhere program and may not contain all information available regarding this patient. Last updated 17.[facility] Social History Tobacco Use Types Packs/Day Years Used Date Smoking Tobacco: Never Assessed Sex and Gender Information Value Date Recorded Sex Assigned at Not on file Gender Identity Not on file Sexual Orientation Not on file Plan of Treatment Not on file Care Teams Setup Operator Relationship Specialty Start Date End Date Natan Rush MD [address] [place] [address] PCP - General 07/26/18
--- OUTSIDE RECORDS SUMMARY | 2024-04-20 15:33 | XMS_ITS | Patient Health Summary ---
Author Organization [facility] Address [address] [place] [address] Care Team Providers Care Procurement Director Name Role Phone Natan Rush MD Primary Care Provider [phone] [facility],non-owned Affiliates and Associated Physician Practices is amultiple site organization consisting of ambulatory clinics and hospital sitesin [place], [place], [place] and [place]. This disclosure is being madepursuant to the Care Everywhere program and may not contain all information available regarding this patient. Last updated 17.[facility] [employer] Social History Tobacco Use Types Packs/Day Years [...] Helicobacter organisms Dictated by Gabriel Reed M.D. Infantry Operations Specialist [employer]END[employer] Released By GABRIEL REED MISCELLANEOUS SAMPLES / Unknown 05/20/2005 11:20 AM CDT 05/22/2005 9:56 AM CDT Historical Provider LAB - PATHOLOGY/C YTOLOGY ORDERABLES Care Teams Procurement Director Relationship Specialty Start Date End Date Natan Rush MD [address] [place] [address] PCP - General 07/26/18
--- OUTSIDE RECORDS SUMMARY | 2024-04-20 15:33 | XMS_ITS | Clinical Summary ---
Author Organization [facility] Address [address] [place] [address] Care Team Providers Care Piling Setter Name Role Phone Natan Rush MD Primary Care Provider [phone] Source Comments [facility] [employer],non-owned Affiliates and Associated Physician Practices is amultiple site organization consisting of ambulatory clinics and hospital sitesin [place], [place], [place] and [place]. This disclosure is being madepursuant to the Care Everywhere program and may not contain all information available regarding this patient. Last updated 17.[facility] [employer] Social History Tobacco Use Types Packs/Day Years [...] age to complete this topic Care Teams Piling Setter Relationship Specialty Start Date End Date Natan Rush MD [address] [place], [place] [id number] PCP - General 07/26/18
--- OUTSIDE RECORDS SUMMARY | 2024-04-20 15:33 | XMS_ITS | Continuity of Care Document ---
Author Organization [facility] Address [address] [facility] [address] [facility] [address] [place] [address] Phone Care Team Providers Care Watch Repairer Name Role Phone Mari OD, Samuel Unavailable Unavailable Advance Directives Directive Yes / No Effective Date File Name No Information Encounters Encounter Description Practice Location Reason(s) For Visit Diagnoses Date Provider Providers Copied on Encounter [facility], [address] [place] [address] [address], [place], [place], [address], [place] tel:[phone] [facility] No Information June- 3-200 6 Mari ABHIJEET Baker. Alina [facility] [address] [address], [place], [address], [place]. tel:[phone] Referring Provider: Alina Arana OD [facility] [address] [address] [address], [place], [place], [facility]. tel:[phone] Family History Family Member Type Diagnosis Age [...]
[2024-04-20] MEDS: methylPREDNISolone SOD SUCC 125 MG VIAL IV PUSH (15:45)
[2024-04-20] MEDS: MAGNESIUM SULF 2 GM/WATER 50ML 2 GM/50 ML BAG IVPB (15:48)
[2024-04-20 15:54] LABS: Basophils Percent Auto 0.2 % (0.2-1.2); Hematocrit 36.9 % (37.0-47.0); Hemoglobin 11.4 g/dL (12.0-15.0); Immature Granulocyte Absolute 0.03 K/mm3 (0.00-0.031); Immature Granulocyte Percent A 0.7 % (0-0.5); Lymphocytes Absolute Auto 0.73 K/mm3 (0.9-3.2); Mean Corpuscular HGB Conc 30.9 g/dl (32-36); Mean Corpuscular Hemoglobin 27.6 pg (26-34); Mean Corpuscular Volume 89.3 fl (80-100); Mean Platelet Volume 9.6 fl (7.4-10.4); Monocytes Absolute Auto 0.3 K/mm3 (0.1-0.6); Monocytes Percent Auto 5.5 % (2.6-8.5); Neutrophils Absolute Auto 3.6 K/mm3 (1.3-6.7); Neutrophils Percent Auto 77.6 % (45.5-73.1); Platelet Count Result 220 k/mm3 (150-375); Red Blood Count 4.13 M/mm3 (4.2-5.4); Red Cell Distribution Width 14.2 % (11.5-14.5); White Blood Count 4.6 K/mm3 (4.5-10.0)
[2024-04-20 16:04] LABS: Alanine Aminotransferase 52 U/L (6-35); Alkaline Phosphatase 88 U/L (38-126); Anion Gap 10 mmol/L (4-12); Aspartate Amino Transferase 34 U/L (14-36); Bilirubin,Total 0.1 mg/dL (0.2-1.3); Blood Urea Nitrogen 29 mg/dL (7-17); Calcium 8.9 mg/dL (8.4-10.2); Carbon Dioxide 25 mmol/L (22-30); Chloride 101 mmol/L (98-107); Estimated Glomerular Filt Rate > 60; Glucose 234 mg/dL (65-110); Potassium 4.4 mmol/L (3.4-5.0); Sodium 136 mmol/L (137-145)
[2024-04-20 16:13] LABS: NT Pro B Type Natriuretic Pept 280 pg/mL (19.9-100)
[2024-04-20 18:01] LABS: Influenza A QL RT-PCR Positive (Negative); Influenza B QL RT-PCR Negative (Negative); RSV RNA, RT-PCR Negative (Negative); SARS-CoV-2 RNA PCR Negative (Negative)
== END 2024-04-20 19:08 | disposition home or self-care (01) ==
PROVIDERS: Emergency Provider Student in an Organized Health Care Education/Training Program; PCP Family Medicine
DX: J10.1 Influenza due to other identified influenza virus with other respiratory manifestations (principal); J45.901 Unspecified asthma with (acute) exacerbation; Z20.822 Contact with and (suspected) exposure to COVID-19; E78.5 Hyperlipidemia, unspecified; I10 Essential (primary) hypertension; J45.909 Unspecified asthma, uncomplicated; Z87.891 Personal history of nicotine dependence; Z79.899 Other long term (current) drug therapy
CPT/HCPCS: 36415; 71046; 80053; 83880; 85025; 87637; 93005; 94640; 96365; 96366; 96375; 99284; J2919; J3475

== ENCOUNTER 2024-04-27 15:31 | Emergency (ER) | payer BC, SELFPAY ==
--- NOTE | ~2024-04-27 | XR_ITS ---
EXAMINATION: XR chest 1V portable Exam Date/Time: 04/27/2024 16:35 CDT HISTORY: COUGHING Comparison: 04/20/2024. RESULT: Lines, tubes, and devices: None. Lungs and pleura: No focal consolidation, pleural effusion, or pneumothorax. Calcified right upper l bria granuloma. Cardiomediastinal silhouette: Stable. Other: No acute osseous or upper abdominal finding. IMPRESSION: No acute cardiopulmonary process. Reviewed, dictated and finalized at location K.
--- OUTSIDE RECORDS SUMMARY | 2024-04-27 15:34 | XMS_ITS | Data Portability ---
Author Organization [place] - [facility] , [facility] Address [address] [place] [address] Assessment Encounter Date Assessment Date Assessment LastModified [...] Orders benzonatate 200 mg capsule 2024 025 [facility] [address], [address] [place] [address], [address], 12:45:48 prednisone 20 mg tablet 2024 025 [facility] [address], [address] [place], [address], 12:45:47 fluticasone propionate 50 mcg/actuati on nasal spray,suspe nsion 2024 025 [facility] [address], [address] [place], [address], 5 12:45:49 Augmentin 875 mg-125 mg tablet 2023 024 [facility] [address], [address] [place], [address], 4 17:56:14 Patient TargetsNo targets recorded. Patient Instructions Encounter Date Encounter Id Patient Instructions Last Modified By Organization Details Last Modified Time 02/01/2024 [id number] Acute Sinusitis: Care Instructions skifer Not available 02/01/2024 17:56:09 04/18/2024 [id number] upper respirator y infection (cold): care instructions [...] will be sent to your pharmacy at [facility]. Please monitor your symptoms closely. [...] Name and Address Organization Details Recorded Time [id number] codeine medicatio n Not available Not available [...] SNOMED-CT Code Diagnosis ICD10 Code Diagnosis Note [id number] [facility] C[facility] [address] [place] [address] 02/01/2024 17:50:37 02/01/2024 23:56:31 Acute bacterial sinusitis 52216193 J01.90 [id number] Olivia Rollins [address] [place] [address] 04/18/2024 12:36:08 04/18/2024 12:51:30 Exacerbation of intermittent asthma [id number] J45.21 Asthma Exacerbati on - Indicated by [...] not improve. Acute uppe r respiratory infection [id number] J06.9 Ddx: Viral URI, Acute Bronchitis , [...] agreement with treatment plan as outlined. Cough 42775295 R05.9 Health Concerns Section Related Observation LastModified [...] sob. Taking flonase and claritin. JOHN Maya [address] [place] [address], [address], [facility] 02/01/2024 17:56:59 04/18/2024 text/html Call connected, patient greeted. Patient name, , telephone number, and location verified verbally with the patient. Telemedicine limitations reviewed, answered all questions the patient had about the telehealth interaction, and verbal consent obtained to treat. Clinician attests they are physically located in the following state at the time of visit: [place] The patient also consents to the use [...] the entire week. Attempted symptom control with tmpy-djn-rfpjpiv medications such as Tylenol, Sudafed for sinus pressure, Sudafed for congestion, Louise-Ashland Plus (day and night), and Excedrin has [...] of their respiratory history. JOIE CowanP [address] [facility] [address], [place], [address], [facility] 04/18/2024 12:50:00 OBGyn Episode No OBEpisode recorded.
--- OUTSIDE RECORDS SUMMARY | 2024-04-27 15:34 | XMS_ITS | Continuity of Care Document ---
Author Organization [facility] Address [address] [facility] [address] [facility] [address] [place] [address] Phone Care Team Providers Care Director Of Staff Development Name Role Phone Mari OD, Samuel Unavailable Unavailable Advance Directives Directive Yes / No Effective Date File Name No Information Encounters Encounter Description Practice Location Reason(s) For Visit Diagnoses Date Provider Providers Copied on Encounter [facility], [address] [place] [address] [address], [place], [place], [address], [place] tel:[phone] [facility] No Information June- 3-200 6 Mari ABHIJEET Baker. [facility]ina [facility] [address] [address], [place], [address], [place]. tel:[phone] Referring Provider: [facility] OD [facility] [address] [address] [address], [place], [place], [facility] [place] [facility]. tel:[phone] Family History Family Member Type Diagnosis Age [...]
--- OUTSIDE RECORDS SUMMARY | 2024-04-27 15:34 | XMS_ITS | Patient Health Summary ---
Author Organization [facility] Address [address] [place] [address] Care Team Providers Care Store Team Leader Name Role Phone Natan Rush MD Primary Care Provider [phone] Note from [facility],non-owned Affiliates and Associated Physician Practices is amultiple site organization consisting of ambulatory clinics and hospital sitesin [place], [place], [place] and [place]. This disclosure is being madepursuant to the Care Everywhere program and may not contain all information available regarding this patient. Last updated 17.[facility] [employer] Social History Tobacco Use Types Packs/Day Years [...] Helicobacter organisms Dictated by Gabriel Reed M.D. Disability Liaison Officer SKYE ARMENDARIZ Released By GABRIEL REED MISCELLANEOUS SAMPLES / Unknown 05/20/2005 11:20 AM CDT 05/22/2005 9:56 AM CDT Historical Provider LAB - PATHOLOGY/C YTOLOGY ORDERABLES Care Teams Store Team Leader Relationship Specialty Start Date End Date Natan Rush MD [address] [place] [address] PCP - General 07/26/18
--- OUTSIDE RECORDS SUMMARY | 2024-04-27 15:34 | XMS_ITS | Referral Summary ---
Author Organization [facility] Address [address] [place] [address] Care Team Providers Care Display Artist Name Role Phone Natan Rush MD Primary Care Provider [phone] Source Comments [facility],non-owned Affiliates and Associated Physician Practices is amultiple site organization consisting of ambulatory clinics and hospital sitesin [place], [place], [place] and [place]. This disclosure is being madepursuant to the Care Everywhere program and may not contain all information available regarding this patient. Last updated 17.[facility] Social History Tobacco Use Types Packs/Day Years Used Date Smoking Tobacco: Never Assessed Sex and Gender Information Value Date Recorded Sex Assigned at Not on file Gender Identity Not on file Sexual Orientation Not on file Plan of Treatment Not on file Care Teams Display Artist Relationship Specialty Start Date End Date Natan Rush MD [address] [place] [address] PCP - General 07/26/18
--- OUTSIDE RECORDS SUMMARY | 2024-04-27 15:34 | XMS_ITS | Continuity of Care Document ---
Author Organization [employer] [facility] Address [address] [place] [address] Phone Care Team Providers Care Engineering Writer Name Role Phone Dane Shultz MD Unavailable Unavailable Advance Directives Directive Yes / No Effective Date File Name No Information Encounters Encounter Description Practice Location Reason(s) For Visit Diagnoses Date Provider Providers Copied on Encounter [facility], [address], [place], [place], [address], tel:[phone] [facility] No Information Lexii Vela. [address] [place], [place], [address], . tel:[phone] [facility], [address] [place] [address], [id number], tel:[phone] [facility] [employer] Anne Marie Martines. [address] [place], [place], [id number], . tel:[phone] Family History Family Member Type Diagnosis Age [...]
--- OUTSIDE RECORDS SUMMARY | 2024-04-27 15:34 | XMS_ITS | Clinical Summary ---
Author Organization [facility] Address [address] [facility] [place] [address] Care Team Providers Care Manager Portable Name Role Phone Natan Rush MD Primary Care Provider [phone] Source Comments [facility] [employer],non-owned Affiliates and Associated Physician Practices is amultiple site organization consisting of ambulatory clinics and hospital sitesin [place], [place], [place] and [place]. This disclosure is being madepursuant to the Care Everywhere program and may not contain all information available regarding this patient. Last updated 17.[facility] [employer] Social History Tobacco Use Types Packs/Day Years [...] to complete this topic MENINGOCOCCAL (Group B) VACC INE SHARED DECISION-MAKING Aged Out No longer eligibl e based on patient's age to complete this topic MENINGOCOCCAL GROUPS A/C/Y/W VACCINE Aged Out No longer eligible b ased on patient's age to complete this topic PNEUMOCOCCAL VACCINE Aged Out No long er eligible based on patient's age to complete this topic Care Teams Manager Portable Relationship Specialty Start Date End Date Natan Rush MD [address] [place], [place] [id number] PCP - General 07/26/18
[2024-04-27 15:41] VITALS: BP 136/74; PULSE 89; RESP 20; TEMP 36.9; O2SAT 98
--- NOTE | 2024-04-27 16:32 | ED.GENADULT ---
HPI - General Adult General Chief complaint: Recheck/Abnormal Lab/Rx Stated complaint: dizzy, low bp? Time Seen by Provider: 04/27/24 16:30 Source: patient and family Mode of arrival: ambulatory Limitations: no limitations History of Present Illness HPI narrative: 58 YEARS OLD WHITE FEMALE TESTED POSITIVE FOR INFLUENZA A 1 WEEK AGO, WAS DISCHARGE ON TAMIFLU, PREDNISONE AND ALBUTEROL TREATMENT. PATIENT IS BACK TO THE ED TODAY FOR THE SAME SYMPTOM, HEADACHE, GENERAL BODY ACHES, NO ENERGY, EXTREMELY EXHAUSTED AND TIRED, DIZZINESS FOR THE LAST 7 DAYS. HISTORY OF HYPERTENSION, ASTHMA. PATIENT DOES NOT SMOKE OR DRINK OR USE DRUGS Related Data Allergies Allergy/AdvReac Type Severity Reaction Status Date / Time codeine Allergy Unknown Itching Verified 04/27/24 16:36 Review of Systems Review of Systems: All systems reviewed & are unremarkable except as noted in HPI and below PMFSH Family History Family History Father Cerebrovascular accident Alcohol abuse Diabetes mellitus Mother Family history of malignant neoplasm of breast in first degree relative Hypertension Social History Social History Social History: Smoking status: Former smoker Tobacco type: cigarettes Second hand tobacco smoke exposure: No Smoking end date: 02/13/08 Alcohol intake: never Substance use: never Substance use type: does not use Do You Feel Safe in your Home?: Yes Lack of Transportation: No Lack of Food: Never True Current Housing: I Do Not Have Housing Concerned About Future Housing: No Difficulty Paying Gas/Electric Bills: No Difficulty Paying for Meds: No Currently Unemployed: No Education: High School Diploma/GED Difficulty w/ Childcare or Family Care: No Living arrangements: with family Occupation/Education: retired Gender identity (if verbalized by the patient): Female Sexual Orientation (if Verbalized by the Patient): Straight or Heterosexual Exam Narrative: GENERAL APPEARANCE: WELL-DEVELOPED, WELL-NOURISHED SKIN: NORMAL COLOR HEAD: NORMOCEPHALIC, NONTRAUMATIC EYES: CLEAR CONJUNCTIVA ENT: OROPHARYNX NORMAL, EARS NORMAL, NOSE NORMAL NECK: SUPPLE, NONTENDER CHEST AND RESPIRATORY: AIRWAY PATENT, NO RESPIRATORY DISTRESS, NO ACCESSORY MUSCLE USE HEART: REGULAR RATE/RHYTHM ABDOMEN: SOFT, NONTENDER, NO ORGANOMEGALY, QUIET BOWEL SOUNDS VASCULAR: NORMAL PERIPHERAL PULSES, NORMAL CAPILLARY REFILL. MUSCULOSKELETAL: NORMAL RANGE OF MOTION, NONTENDER BACK NEUROLOGIC: ALERT AND ORIENTED ?3, SINGLE SPINDLE SCREW MACHINE OPERATOR IS NORMAL TESTED, NO GROSS MOTOR DEFICIT Course Vital Signs Vital signs: Vital Signs Temperature 36.9 C 04/27/24 15:41 Pulse Rate 89 04/27/24 15:41 Respiratory Rate 20 04/27/24 15:41 Blood Pressure 136/74 04/27/24 15:41 Pulse Oximetry 98 04/27/24 15:41 Oxygen Delivery Room Air 04/27/24 15:41 Temperature 36.9 C 04/27/24 15:41 Pulse Rate 87 04/27/24 18:11 Respiratory Rate 22 H 04/27/24 18:11 Blood Pressure 153/66 H 04/27/24 18:11 Pulse Oximetry 96 04/27/24 18:11 Oxygen Delivery Room Air 04/27/24 15:41 Medical Decision Making MDM Narrative Medical decision making narrative: PATIENT CAME WITH FLU-LIKE SYMPTOMS STARTED 1 WEEK AGO, TESTED POSITIVE FOR INFLUENZA 1 WEEK AGO AND FINISHED A COURSE OF TAMIFLU. VITAL SIGNS ARE STABLE PHYSICAL EXAMINATION SHOWING PATIENT WITH MULTIPLE COMPLAINS, MORBIDLY OBESE OTHERWISE INSIGNIFICANT DIFFERENTIAL DIAGNOSIS FLU-LIKE SYMPTOMS, DEHYDRATION, ELECTROLYTE IMBALANCE BLOOD WORKUP TODAY INCLUDES CBC, CMP, INSIGNIFICANT ABNORMALITIES URINALYSIS SHOWED NO EVIDENCE OF INFECTION RESPIRATORY PANEL CAME BACK NEGATIVE FOR COVID FLU AND RSV CHEST X-RAY SHOWED NO ACUTE CARDIOPULMONARY ABNORMALITIES DIAGNOSIS VIRAL SYNDROME THE PT WAS DISCHARGED TO HOME.THE PT,S CONDITION UPON DISCHARGE WAS FAIR,EDUCATION WAS PROVIDED TO THE PT IN REFERENCE TO THE FINAL IMPRESSION,DISCHARGE STUDY RESULTS,TREATMENT,PROGNOSIS AND NEED FOR FOLLOW UP . Differential Diagnosis Differential Diagnosis: ABOVE Vital Signs Vital Signs: Vital Signs Temperature 36.9 C 04/27/24 15:41 Pulse Rate 89 04/27/24 15:41 Respiratory Rate 20 04/27/24 15:41 Blood Pressure 136/74 04/27/24 15:41 Pulse Oximetry 98 04/27/24 15:41 Oxygen Delivery Room Air 04/27/24 15:41 Temperature 36.9 C 04/27/24 15:41 Pulse Rate 87 04/27/24 18:11 Respiratory Rate 22 H 04/27/24 18:11 Blood Pressure 153/66 H 04/27/24 18:11 Pulse Oximetry 96 04/27/24 18:11 Oxygen Delivery Room Air 04/27/24 15:41 Lab Data 04/27/24 17:48 04/27/24 17:48 Labs: Lab Results 04/27/24 04/27/24 04/27/24 Range/Units 17:06 17:48 17:49 WBC 8.2 (4.5-10.0) K/mm3 RBC 4.32 (4.2-5.4) M/mm3 Hgb 11.9 L (12.0-15.0) g/dL Hct 38.7 (37.0-47.0) % MCV 89.6 (80-100) fl MCH 27.5 (26-34) pg MCHC 30.7 L (32-36) g/dl RDW 14.6 H (11.5-14.5) % Plt Count 273 (150-375) k/mm3 MPV 9.4 (7.4-10.4) fl Immature Gran % (Auto) 0.7 H (0-0.5) % Neut % (Auto) 69.6 (45.5-73.1) % Lymph % (Auto) 21.1 (18.3-44.2) % [place] % (Auto) 6.7 (2.6-8.5) % Eos % (Auto) 1.7 (0-4.4) % Baso % (Auto) 0.2 (0.2-1.2) % Lymph # (Auto) 1.72 (0.9-3.2) K/mm3 [place] # (Auto) 0.6 (0.1-0.6) K/mm3 Eos # (Auto) 0.1 (0-0.3) K/mm3 Baso # (Auto) 0.0 (0.0-0.1) K/mm3 Abs Immat Gran (auto) 0.06 H (0.00-0.031) K/mm3 Absolute Neuts (auto) 5.7 (1.3-6.7) K/mm3 Absolute Nucleated RBC 0.000 (0.0-0.012) K/mm3 Nucleated RBC % 0.0 (0.0-0.2) % Sodium 137 (137-145) mmol/L Potassium 4.2 (3.4-5.0) mmol/L Chloride 98 (98-107) mmol/L Carbon Dioxide 34 H (22-30) mmol/L Anion Gap 5 (4-12) mmol/L BUN 25 H (7-17) mg/dL Creatinine 0.98 (0.7-1.0) mg/dL Estim Creat Clear Calc Not Reportable Estimated GFR 58 L (59 - ) Glucose 125 H (65-110) mg/dL Calcium 9.1 (8.4-10.2) mg/dL Total Bilirubin 0.3 (0.2-1.3) mg/dL AST 22 (14-36) U/L ALT 49 H (6-35) U/L Alkaline Phosphatase 82 (38-126) U/L Total Protein 7.0 (6.3-8.2) g/dL Albumin 3.9 (3.5-5.1) g/dL Urine Color Yellow (Yellow) Urine Appearance Clear (Clear) Urine pH 8.5 (5.0-9.0) Ur Specific [place] 1.013 (1.001-1.035) Urine Protein Negative (Negative) mg/dL Urine Glucose (UA) Negative (Negative) mg/dL Urine Ketones Negative (Negative) mg/dL Ur Blood (Man) Negative (Negative) Urine Nitrate Negative (Negative) Urine Bilirubin Negative (Negative) Urine Urobilinogen 0.2 (<2.0) mg/dL Leukocyte Esterase Rfl Negative (Negative) DANY/UL Influenza A (RT-PCR) Negative (Negative) Influenza B (RT-PCR) Negative (Negative) RSV (RT-PCR) Negative (Negative) SARS-CoV-2 RNA (RT-PCR) Negative (Negative) Imaging Data Radiologist's impression: Impressions Chest X-Ray 04/27/24 17:16 IMPRESSION: No acute cardiopulmonary process. ECG Data EKG #1: Attestation: I personally reviewed and interpreted this ECG as follows: ECG completion date: 04/27/24 ECG completion time: 18:46 Interpretation: NORMAL SINUS RHYTHM AT 99 BEATS PER MINUTE, LEFT ATRIAL ENLARGEMENT, COMPARED TO EKG ON APRIL 20, 2024 NO SIGNIFICANT CHANGES Critical Care Time Critical Care Time Critical Care Time: No Discharge Plan Discharge Clinical Impression: Acute viral syndrome Patient Disposition: Home, Self-Care Condition: Stable Instructions: Viral Syndrome (ED) Patient Language: Irish Prescriptions: New meclizine [Antivert] 25 mg tablet,chewable 25 mg PO TID Qty: 20 0RF No Action omeprazole 40 mg capsule,delayed release(DR/EC) See Rx Instructions .ROUTE .COMPLEX Qty: 90 2RF Dose Instruction: TAKE 1 CAPSULE DAILY BEFORE A MEAL Rx Instructions: TAKE 1 CAPSULE DAILY BEFORE A MEAL acetaminophen 500 mg capsule 1,000 mg PO Q6H PRN (Reason: pain) Qty: 30 0RF prednisone 50 mg tablet 50 mg PO DAILY 5 Days Qty: 5 0RF albuterol sulfate 90 mcg/actuation HFA aerosol inhaler 2 puff inhalation QID PRN (Reason: shortness of breath or wheezing) Qty: 8.5 0RF oseltamivir [Tamiflu] 75 mg capsule 75 mg PO Q12H 5 Days Qty: 10 0RF (DME) nebulizers [Compact Compressor Nebulizer] [facility] See Rx Instructions .Route Qty: 1 0RF Rx Instructions: As directed ipratropium bromide 0.02 % solution 2.5 ml inhalation Q6H PRN (Reason: shortness of breath or wheezing) Qty: 62.5 0RF albuterol sulfate 2.5 mg/0.5 mL solution for nebulization 5 mg inhalation Q6H PRN (Reason: shortness of breath or wheezing) Qty: 30 0RF albuterol sulfate [Ventolin HFA] 90 mcg/actuation HFA aerosol inhaler See Rx Instructions .ROUTE .COMPLEX Qty: 18 5RF Dose Instruction: USE 2 INHALATIONS EVERY 4 TO 6 HOURS NEEDED Rx Instructions: USE 2 INHALATIONS EVERY 4 TO 6 HOURS NEEDED triamcinolone acetonide 0.025 % cream 1 applic TOPICAL BID PRN (Reason: rash) Qty: 80 1RF Rx Instructions: to affected area(s) lisinopril 30 mg tablet See Rx Instructions .ROUTE .COMPLEX Qty: 30 1RF Dose Instruction: TAKE 1 TABLET DAILY Rx Instructions: TAKE 1 TABLET DAILY (DME) nebulizer and compressor Device See Rx Instructions .Route Qty: 1 0RF Rx Instructions: As directed Follow-up/Referrals: Natan Rush MD [Primary Care Provider] -
--- NOTE | 2024-04-27 16:34 | ECG_ITS ---
Test Date: 2024-04-27 17:25:08 Measurements Intervals Lee Rate: 99 P: 53 IA: 150 QRS: 16 QRSD: 88 T: 55 QT: 316 QTc: 406 Interpretive Statements SINUS RHYTHM POSSIBLE LEFT ATRIAL ENLARGEMENT [-0.1mV P-WAVE IN V1/V2] Compared to ECG 04/20/2024 15:33:46 No significant changes Electronically Signed On 04-28-2024 15:09:51 CDT by Kendrick Mckinley M.D.
--- OUTSIDE RECORDS SUMMARY | 2024-04-27 16:54 | XMS_ITS | Continuity of Care Document ---
Author Organization [facility] Address [address] [facility] [address] [facility] [address] [place] [address] Phone Care Team Providers Care French Lecturer Name Role Phone Mari OD, Samuel Unavailable Unavailable Advance Directives Directive Yes / No Effective Date File Name No Information Encounters Encounter Description Practice Location Reason(s) For Visit Diagnoses Date Provider Providers Copied on Encounter [facility], [address] [place] [address] [address], [place], [place], [address], [place] tel:[phone] [facility] No Information June- 3-200 6 Mari ABHIJEET Baker. [facility]ina [facility] [address] [address], [place], [address], [place]. tel:[phone] Referring Provider: Alina Arana OD [facility] [address] [address] [address], [place], [place], [facility]. tel:[phone] Family History Family Member Type Diagnosis Age [...]
--- OUTSIDE RECORDS SUMMARY | 2024-04-27 16:54 | XMS_ITS | Continuity of Care Document ---
Author Organization [employer] [facility] Address [address] [place] [address] Phone Care Team Providers Care Mission Support Specialist Name Role Phone Dane Shultz MD Unavailable Unavailable Advance Directives Directive Yes / No Effective Date File Name No Information Encounters Encounter Description Practice Location Reason(s) For Visit Diagnoses Date Provider Providers Copied on Encounter [facility], [address], [place], [place], [address], tel:[phone] [facility] No Information Lexii Vela. [address] [place], [place], [address], . tel:[phone] [facility], [address] [place] [address], [id number], tel:[phone] [facility] JOINT PAIN-SHLDER Anne Marie Martines. [address] [place], [place], [address], . tel:[phone] Family History Family Member Type Diagnosis Age [...]
--- OUTSIDE RECORDS SUMMARY | 2024-04-27 16:54 | XMS_ITS | Clinical Summary ---
Author Organization [facility] Address [address] [place] [address] Care Team Providers Care [employer] Name Role Phone Natan Rush MD Primary Care Provider [phone] Source Comments [facility] [employer],non-owned Affiliates and Associated Physician Practices is amultiple site organization consisting of ambulatory clinics and hospital sitesin [place], [place], [place] and [place]. This disclosure is being madepursuant to the Care Everywhere program and may not contain all information available regarding this patient. Last updated 17.[facility] Social History Tobacco Use Types Packs/Day Years [...] age to complete this topic Care Teams [employer] Relationship Specialty Start Date End Date Natan Rush MD [address] [place], [place] [address] PCP - General 07/26/18
--- OUTSIDE RECORDS SUMMARY | 2024-04-27 16:54 | XMS_ITS | Referral Summary ---
Author Organization [facility] Address [address] [place] [address] Care Team Providers Care Child Development Professor Name Role Phone Natan Rush MD Primary Care Provider [phone] Source Comments [facility],non-owned Affiliates and Associated Physician Practices is amultiple site organization consisting of ambulatory clinics and hospital sitesin [place]. This disclosure is being madepursuant to the Care Everywhere program and may not contain all information available regarding this patient. Last updated 17.[facility] Social History Tobacco Use Types Packs/Day Years Used Date Smoking Tobacco: Never Assessed Sex and Gender Information Value Date Recorded Sex Assigned at Not on file Gender Identity Not on file Sexual Orientation Not on file Plan of Treatment Not on file Care Teams Child Development Professor Relationship Specialty Start Date End Date Natan Rush MD [address] [place] [address] PCP - General 07/26/18
--- OUTSIDE RECORDS SUMMARY | 2024-04-27 16:54 | XMS_ITS | Patient Health Summary ---
Author Organization [facility] Address [address] [place] [address] Care Team Providers Care Pest Control Operator Name Role Phone Natan Rush MD Primary Care Provider [phone] Note from [facility],non-owned Affiliates and Associated Physician Practices is amultiple site organization consisting of ambulatory clinics and hospital sitesin [place], [place], [place] and [place]. This disclosure is being madepursuant to the Care Everywhere program and may not contain all information available regarding this patient. Last updated 17.[facility] [employer] Social History Tobacco Use Types Packs/Day Years [...] Helicobacter organisms Dictated by Gabriel Reed M.D. Dehydrogenation Operator SKYE ARMENDARIZ Released By GABRIEL REED MISCELLANEOUS SAMPLES / Unknown 05/20/2005 11:20 AM CDT 05/22/2005 9:56 AM CDT Historical Provider LAB - PATHOLOGY/C YTOLOGY ORDERABLES Care Teams Pest Control Operator Relationship Specialty Start Date End Date Natan Rush MD [address] [place] [address] PCP - General 07/26/18
[2024-04-27 17:47] LABS: Influenza A QL RT-PCR Negative (Negative); Influenza B QL RT-PCR Negative (Negative); RSV RNA, RT-PCR Negative (Negative); SARS-CoV-2 RNA PCR Negative (Negative)
[2024-04-27 17:58] LABS: Basophils Percent Auto 0.2 % (0.2-1.2); Eosinophils Absolute Auto 0.1 K/mm3 (0-0.3); Eosinophils Percent Auto 1.7 % (0-4.4); Hematocrit 38.7 % (37.0-47.0); Hemoglobin 11.9 g/dL (12.0-15.0); Immature Granulocyte Absolute 0.06 K/mm3 (0.00-0.031); Immature Granulocyte Percent A 0.7 % (0-0.5); Lymphocytes Absolute Auto 1.72 K/mm3 (0.9-3.2); Lymphocytes Percent Auto 21.1 % (18.3-44.2); Mean Corpuscular HGB Conc 30.7 g/dl (32-36); Mean Corpuscular Hemoglobin 27.5 pg (26-34); Mean Corpuscular Volume 89.6 fl (80-100); Mean Platelet Volume 9.4 fl (7.4-10.4); Monocytes Absolute Auto 0.6 K/mm3 (0.1-0.6); Monocytes Percent Auto 6.7 % (2.6-8.5); Neutrophils Absolute Auto 5.7 K/mm3 (1.3-6.7); Neutrophils Percent Auto 69.6 % (45.5-73.1); Platelet Count Result 273 k/mm3 (150-375); Red Blood Count 4.32 M/mm3 (4.2-5.4); Red Cell Distribution Width 14.6 % (11.5-14.5); White Blood Count 8.2 K/mm3 (4.5-10.0)
[2024-04-27 18:01] LABS: Add Urine Microscopic? NO; Appearance Urine Clear (Clear); Bilirubin Urine Negative (Negative); Blood Urine Negative (Negative); Color Urine Yellow (Yellow); Glucose Urine UA Negative (Negative); Ketones Urine Negative (Negative); Leukocyte Esterase Ur Negative LEU/UL (Negative); Nitrate Urine Negative (Negative); Protein Urine Negative (Negative); Specific Grav Ur 1.013 (1.001-1.035); Urobilinogen Urine 0.2 mg/dL (<2.0); pH Urine 8.5 (5.0-9.0)
[2024-04-27] MEDS: SODIUM CHLORIDE 0.9% IV 1,000 ML 999 ML IV CONT (18:09)
[2024-04-27 18:11] VITALS: BP 153/66; PULSE 87; RESP 22; O2SAT 96
[2024-04-27 18:41] LABS: Alanine Aminotransferase 49 U/L (6-35); Albumin Level 3.9 g/dL (3.5-5.1); Alkaline Phosphatase 82 U/L (38-126); Anion Gap 5 mmol/L (4-12); Aspartate Amino Transferase 22 U/L (14-36); Bilirubin,Total 0.3 mg/dL (0.2-1.3); Blood Urea Nitrogen 25 mg/dL (7-17); Calcium 9.1 mg/dL (8.4-10.2); Carbon Dioxide 34 mmol/L (22-30); Chloride 98 mmol/L (98-107); Estimated Glomerular Filt Rate 58; Glucose 125 mg/dL (65-110); Potassium 4.2 mmol/L (3.4-5.0); Sodium 137 mmol/L (137-145)
[2024-04-27] MEDS: MECLIZINE HCL 25 MG TABLET PO (19:04)
[2024-04-27 19:08] VITALS: BP 156/76; PULSE 93; RESP 24; O2SAT 94
== END 2024-04-27 19:09 | disposition home or self-care (01) ==
PROVIDERS: Emergency Provider Emergency Medicine; PCP Family Medicine
DX: B34.9 Viral infection, unspecified (principal); I10 Essential (primary) hypertension; J45.909 Unspecified asthma, uncomplicated; Z87.891 Personal history of nicotine dependence; Z20.822 Contact with and (suspected) exposure to COVID-19
CPT/HCPCS: 36415; 71045; 80053; 81003; 85025; 87637; 93005; 96360; 99283; A9270; J7030

== ENCOUNTER 2024-10-28 12:30 | Outpatient (CLI) | payer BC, SELFPAY ==
--- OUTSIDE RECORDS SUMMARY | 2003-03-08 19:00 | XMS_ITS | Continuity of Care Document ---
Author Organization [facility] Address [address] [place] [address] Phone Care Team Providers Care Corporate Legal Assistant Name Role Phone Dane Shultz MD Unavailable Unavailable Advance Directives Directive Yes / No Effective Date File Name No Information Encounters Encounter Description Practice Location Reason(s) For Visit Diagnoses Date Provider Providers Copied on Encounter [facility], [address], [place], [place], [id number], tel:[phone] [facility] No Information Lexii Vela. [address] [place], [place], [id number], . tel:[phone] [facility], [address] [place] [address], [id number], tel:[phone] [facility] [employer] Anne Marie Martines. [address] [place], [place], [id number], . tel:[phone] Family History Family Member Type Diagnosis Age At Onset No Information Payers Payer name Insurance type Covered constitution party ID Authoriza tion(s) No Information Social History [...]
--- OUTSIDE RECORDS SUMMARY | 2005-07-04 10:30 | XMS_ITS | Continuity of Care Document ---
Author Organization [facility] Address [address] [facility] [address] [facility] [address] [place] [address] Phone Care Team Providers Care Solar Photovoltaic Systems Engineer Name Role Phone Mari OD, Samuel Unavailable Unavailable Advance Directives Directive Yes / No Effective Date File Name No Information Encounters Encounter Description Practice Location Reason(s) For Visit Diagnoses Date Provider Providers Copied on Encounter Located within [facility], [address] [place] [address] [address], [place], [place], [id number], [place] tel:[phone] [facility] No Information June- 3-200 6 Mari ABHIJEET Baker. [facility] [address] [address], [place], [address], [place]. tel:[phone] Referring Provider: [facility] [address] [address], [place], [place], [facility]. tel:[phone] Family History Family Member Type Diagnosis Age At Onset No Information Payers Payer name Insurance type Covered republican ID Authoriza tion(s) No Information Social History [...]
--- NOTE | 2024-10-28 | ECG_ITS ---
Test Date: 2024-10-28 13:28:01 Measurements Intervals Friona Rate: 87 P: 66 VA: 156 QRS: 14 QRSD: 91 T: 42 QT: 364 QTc: 438 Interpretive Statements SINUS RHYTHM LOW QRS VOLTAGE IN PRECORDIAL LEADS [QRS DEFLECTION < 1.0 mV IN CHEST LEADS] NONSPECIFIC ST ABNORMALITY ABNORMAL ECG Compared to ECG 04/27/2024 17:25:08 Low QRS voltage now present Electronically Signed On 10-28-2024 17:18:00 CDT by Conrad Ernandez M.D.
--- NOTE | ~2024-10-28 | XR_ITS ---
EXAMINATION: XR chest 2V, 10/28/2024 13:45 CDT HISTORY: DYSPNEA ON EXERTION,PRE-OP FOR HERNIA SURGERY COMPARISON: No comparisons available. Technique: 2 views obtained. Findings: The lungs are clear, no effusion. No pneumothorax. Heart is normal size. Mediastinal and hilar contours are within normal limits. Bony thorax no acute abnormality. Impression: No acute cardiopulmonary abnormality. Reviewed, dictated and finalized at location A. Impression: No acute cardiopulmonary abnormality.
[2024-10-28 13:36] LABS: Hematocrit 38.1 % (37.0-47.0); Hemoglobin 12.1 g/dL (12.0-15.0); Mean Corpuscular HGB Conc 31.8 g/dl (32-36); Mean Corpuscular Hemoglobin 29.2 pg (26-34); Mean Corpuscular Volume 91.8 fl (80-100); Platelet Count Result 318 k/mm3 (150-375); Red Blood Count 4.15 M/mm3 (4.2-5.4); White Blood Count 7.4 K/mm3 (4.5-10.0)
[2024-10-28 13:58] LABS: Parathyroid Intact 55.5 pg/mL (14.5-75.2)
[2024-10-28 13:59] LABS: Iron 51 ug/dL (37-170)
[2024-10-28 14:09] LABS: Alanine Aminotransferase 17 U/L (6-35); Albumin Level 4.0 g/dL (3.5-5.1); Alkaline Phosphatase 71 U/L (38-126); Anion Gap 7 mmol/L (4-12); Aspartate Amino Transferase 24 U/L (14-36); Bilirubin,Total 0.2 mg/dL (0.2-1.3); Blood Urea Nitrogen 32 mg/dL (7-17); Calcium 9.4 mg/dL (8.4-10.2); Carbon Dioxide 31 mmol/L (22-30); Chloride 99 mmol/L (98-107); Estimated Glomerular Filt Rate 52; Glucose 118 mg/dL (65-110); Potassium 4.2 mmol/L (3.4-5.0); Sodium 137 mmol/L (137-145); Total Protein 7.5 g/dL (6.3-8.2)
--- OUTSIDE RECORDS SUMMARY | 2024-10-28 14:09 | XMS_ITS | Clinical Summary ---
Author Organization [facility] Address [address] [place] [address] Care Team Providers Care Change Consultant Name Role Phone Natan Rush MD Primary Care Provider [phone] Source Comments [facility],non-owned Affiliates and Associated Physician Practices is amultiple site organization consisting of ambulatory clinics and hospital sitesin [place], [place], [place] and [place]. This disclosure is being madepursuant to the Care Everywhere program and may not contain all information available regarding this patient. 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 Gender Identity Not on file Sexual Orientation Not on file Plan of Treatment Upcoming Encounters Date Type Department Care Team (Late st Contact Info) Description 11/17/2024 12:31 PM CDT Hospital Encounter [facility] [address] [place] [address] Conrad Celestin, DO [address] [place] [address] [place] [address] Surgery General 11/17/2024 12:31 PM CDT - 11/17/2024 1:39 PM CDT Surgery [facility] [address] [place] [address] Conrad Celestin, DO [address] [place] [address] [place] [id number] LAPAROSCOPIC REPAIR VENTRAL HERNIA WITH MESH POSSIBLE OPEN, 6.8 CM Scheduled Procedures Name Priority Associated Diagnoses Date/Ti me LAPAROSCOPIC REPAIR VENTRAL HERNIA 11/17/2024 12:31 PM CDT Health Maintenance Due Date Last Done Comments COLOGUARD (AGES 45-75) - COL ON CA SCREENING 1965 COLON MONITORING 1965 COLONOSCOPY - COLON CA SCREENING 1965 CT COLONOGRAPHY - COLON CA SCREENING 1965 Colorectal Cancer Screening 1965 FIT - COLON CA SCREENING 1965 FLEX SIG - COLON CA SCREENING 1965 LIPID TESTING 1965 MAMMOGRAM 1965 HIV SCREENING 1980 HEPATITIS C SCREENING 05/29/1983 DTAP/TDAP/TD VACCINES (1 - Tdap) 1984 HEPATITIS B VACCINE (1 of 3 - 19+ 3-dose series) 1984 PNEUMOCOCCAL VACCINE 50+ (1 of 1 - PCV) 06/03/2015 ZOSTER VACCINE (1 of 2) 06/03/2015 DEPRESSION SCREENING 02/13/2024 COVID-19 VACCINE (1 - 2023-2 5 season) 2024 INFLUENZA VACCINE (#1) 2024 HIB VACCINE Aged Out No longer eligi [...] on patient's age to complete this topic Insurance [employer] Care Teams Change Consultant Relationship Specialty Start Date End Date Natan Rush MD [address] [place] [address] [facility] - General 07/26/18
[2024-10-28 14:18] LABS: Free T4 Free Thyroxine 1.19 ng/dL (0.78-2.19)
[2024-10-28 14:31] LABS: Thyroid Stimulating Hormone Reflex 0.695 uIU/mL (0.465-4.68)
[2024-10-28 15:15] LABS: Vitamin B12 476.0 pg/mL (239-931)
[2024-10-31 01:07] LABS: Copper, Serum or Plasma 131 ug/dL (80-158)
[2024-10-31 15:09] LABS: Selenium, Plasma 186 ug/L (93-198)
== END 2024-10-28 12:31 | disposition home or self-care (01) ==
LOC: ANHLAB 12:38
PROVIDERS: PCP Family Medicine
DX: Z01.818 Encounter for other preprocedural examination (principal); K43.9 Ventral hernia without obstruction or gangrene; R94.31 Abnormal electrocardiogram [ECG] [EKG]; R63.4 Abnormal weight loss; R53.83 Other fatigue; E66.01 Morbid (severe) obesity due to excess calories; Z68.43 Body mass index [BMI] 50.0-59.9, adult; K91.2 Postsurgical malabsorption, not elsewhere classified; Z98.84 Bariatric surgery status; Z13.818 Encounter for screening for other digestive system disorders
CPT/HCPCS: 36415; 71046; 80053; 82306; 82525; 82607; 82746; 83540; 83970; 84255; 84439; 84443; 84597; 84630; 85027; 93005

== ENCOUNTER 2024-11-06 16:32 | Outpatient (CLI) | payer BC, SELFPAY ==
--- OUTSIDE RECORDS SUMMARY | 2003-03-08 19:00 | XMS_ITS | Continuity of Care Document ---
Author Organization [facility] Address [address] [place] [address] Phone Care Team Providers Care Assemblyman Or Woman Name Role Phone Dane Shultz MD Unavailable Unavailable Advance Directives Directive Yes / No Effective Date File Name No Information Encounters Encounter Description Practice Location Reason(s) For Visit Diagnoses Date Provider Providers Copied on Encounter [facility], [address], [place], [place], [id number], tel:[phone] [facility] No Information Lexii Vela. [address] [place], [place], [id number], . tel:[phone] [facility], [address] [place] [address], [id number], tel:[phone] [facility] [employer] Anne Marie Martines. [address] [place], [place], [id number], . tel:[phone] Family History Family Member Type Diagnosis Age At Onset No Information Payers Payer name Insurance type Covered democrat ID Authoriza tion(s) No Information Social History Type Description Quantity Date Captured Comments Sex Female Smoking Status No Information Chief Complaint And Reason For Visit No Information Reason For Referral Reason For Referral No Information History Of Present Illness Encounter Date Complaint History Of Prese nt Illness No Information Functional Status Date Functional Assessmen t No Information Instructions Date Instruction Additional Infor mation No Information Assessments Type Assessment Date No Information Patient Care Teams Name Effective Dates (start - stop) Status Members No Information
--- OUTSIDE RECORDS SUMMARY | 2005-07-04 10:30 | XMS_ITS | Continuity of Care Document ---
Author Organization [facility] Address [address] [facility] [address] [facility] [address] [place] [address] Phone Care Team Providers Care Machine Technician Name Role Phone Mari OD, Samuel Unavailable Unavailable Advance Directives Directive Yes / No Effective Date File Name No Information Encounters Encounter Description Practice Location Reason(s) For Visit Diagnoses Date Provider Providers Copied on Encounter [facility], [address] [place] [address] [address], [place], [place], [id number], [place] tel:[phone] [facility] No Information June- 3-200 6 Mari ABHIJEET Baker. [facility] [address] [address], [place], [address], [place]. tel:[phone] Referring Provider: [facility] [address] [address], [place], [place], [facility]. tel:[phone] Family History Family Member Type Diagnosis Age At Onset No Information Payers Payer name Insurance type Covered green party ID Authoriza tion(s) No Information Social [...]
[2024-11-06 17:10] LABS: INR 1.0; Partial Thromboplastin Time 28.7 Seconds (22.3-36.8); Prothrombin Time 13.0 Seconds (11.1-14.7)
--- OUTSIDE RECORDS SUMMARY | 2024-11-06 17:44 | XMS_ITS | Clinical Summary ---
Author Organization [facility] Address [address] [place] [address] Care Team Providers Care Customs And Immigration Officer Name Role Phone Natan Rush MD Primary Care Provider [phone] [facility],non-owned Affiliates and Associated Physician Practices is amultiple site organization consisting of ambulatory clinics and hospital sitesin [place], [place], [place] and [place]. This disclosure is being madepursuant to the Care Everywhere program and may not contain all information available regarding this patient. Last updated 17.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 Gender Identity Not on file Sexual Orientation Not on file Plan of Treatment Upcoming Encounters Date Type Department Care Team (Late st Contact Info) Description 11/17/2024 12:31 PM CDT Hospital Encounter [facility] [address] [place] [address] Conrad Celestin, DO [address] [place] [address] [place] [address] Surgery General 11/17/2024 12:31 PM CDT - 11/17/2024 1:39 PM CDT Surgery [facility] [address] [place] [address] Conrad Celestin, DO [address] [place] [address] [place] [id number] LAPAROSCOPIC REPAIR VENTRAL HERNIA WITH MESH POSSIBLE [...] patient's age to complete this topic Insurance [facility] Care Teams Customs And Immigration Officer Relationship Specialty Start Date End Date Natan Rush MD [address] [place], [place] [id number] PCP - General 07/26/18
== END 2024-11-06 16:33 | disposition home or self-care (01) ==
LOC: ANHLAB 16:36
PROVIDERS: PCP Family Medicine
DX: K43.9 Ventral hernia without obstruction or gangrene (principal)
CPT/HCPCS: 36415; 85610; 85730